=== PATIENT | female | born 1955 | race Caucasian/White ===

== ENCOUNTER → 2020-02-05 | Outpatient (CLI) | payer OTHER ==
[2016-07-13 15:25] VITALS: BP 142/81
[~2020-02-05] MED LIST: AMLO5TAB10 PO; ASPI81TA59 PO; ATOR10TA60 PO; CARV12.511 PO; CETI10TA16 PO; CHOL2000 PO; CINA30TA2 PO; FURO20TA3 PO; FURO40TA4 PO; MINO100C61 PO; POTA20TA4 PO
--- NOTE | 2020-02-05 17:15 | KCIC ---
Bilateral digital screening mammograms: Reason for examination: Routine screening. Comparison is made to previous study dated 02/23/2016. Interpretation is made with the benefit of CAD. The skin and nipples show no abnormalities. No abnormal lymph nodes are seen. The breast parenchyma is predominantly fatty. (Breast density: Category A.) There continue to be several small nodular parenchymal densities bilaterally which have improved. There are no new dominant masses, suspicious calcifications or architectural distortions. Benign-appearing calcifications are seen. Impression: No evidence of malignancy. Recommend routine screening. BI-RADS Category 2: Benign. "Our facility is accredited by the [employer] Mammography Program." This patient's information has been entered into a reminder system for the patient to be notified with the results of her examination and a target date for the next mammogram. Electronically signed by: Domitila Verdugo MD (02/05/2020 5:12 PM) [id number]
== END ==
LOC: KCIC MAMMO 12:58
PROVIDERS: ATTEND Family Medicine
DX: Z12.31 Encounter for screening mammogram for malignant neoplasm of breast (principal)
CPT/HCPCS: 77067

== ENCOUNTER → 2020-02-26 | Outpatient (CLI) | payer MEDICARE ==
[2016-07-13 15:25] VITALS: BP 142/81
== END | disposition home or self-care (01) ==
LOC: LAB 08:02
PROVIDERS: ATTEND Internal Medicine Gastroenterology
DX: Z11.59 Encounter for screening for other viral diseases (principal)
CPT/HCPCS: U0003-CS

== ENCOUNTER → 2020-02-27 | Day surgery (SDC) | payer MEDICARE ==
[~2020-02-27] MED LIST changes: +IV NORMAL SALINE 1000ML BAG 1,000 ML IV ONE; +IV RINGERS,LACTATED 1000ML 1,000 ML IV SCH; +LIDOCAINE 2% PF 5 ML VIAL. ONE; +PROPOFOL 10 MG/ML (20ML) VIAL. IV ONE
[2020-02-27 13:25] VITALS: BP 147/66
--- NOTE | 2020-02-28 18:10 | PATHOLOGY ---
[facility] Accession Number: [id number] . 01 Material submitted: . rectum - RECTAL POLYP . 02 Diagnosis: Rectal polypectomy: - Tubular adenoma. See comment. LB 02/28/2020 1547 Local . 02 Comment: Sections of the rectal polypectomy reveals a somewhat pedunculated tubular adenoma. There is no high grade dysplasia or evidence of malignancy. The base of the polyp appears to be lined by rectal mucosa showing coagulation artifact. (JPM/db; 02/28/2020) . 02 Electronically signed: . Seth Fung MD, Pathologist NPI- [id number] . 01 Gross description: . The specimen is received in formalin, labeled "Darcy Argueta, rectal polyp" and consists of a polypoid segment of pink-church tissue measuring 1.3 x 1.3 x 0.6 cm. It is serially sectioned and entirely submitted in A1. ([facility]; 02/27/2020) JFQ/JFQ 02/27/2020 1804 Local . 02 Pathologist provided ICD-10: D12.8 . 02 CPT . 597718 Specimen Comment: A courtesy copy of this report has been sent to [phone], [phone] Specimen Comment: [id number] Specimen Comment: Report sent to / DR LARSON Performed at: 01 [facility] [address], [place] [id number] MD Carlos Bah MD Phone: [phone] Performed at: 02 [facility] [address], [place] [id number] MD Seth Fung MD Phone: [phone]
== END ==
LOC: SURG 10:28
PROVIDERS: ATTEND Internal Medicine Gastroenterology
DX: K92.1 Melena (principal); K64.0 First degree hemorrhoids; D12.8 Benign neoplasm of rectum; K57.30 Diverticulosis of large intestine without perforation or abscess without bleeding; E78.00 Pure hypercholesterolemia, unspecified; I10 Essential (primary) hypertension; Z87.39 Personal history of other diseases of the musculoskeletal system and connective tissue; F15.90 Other stimulant use, unspecified, uncomplicated; Z79.82 Long term (current) use of aspirin
CPT/HCPCS: 45385; 88305; J2704; 45384

== ENCOUNTER 2020-12-12 12:44 | Inpatient (IN) | payer MEDICARE ==
[~2020-12-12] VITALS: Ht 165.1 cm; Wt 116.8 kg
[~2020-12-12 12:44] MED LIST changes: +AMLO-186 PO; -AMLO5TAB10 PO; -CINA30TA2 PO; +CINA30TA24 PO; -IV NORMAL SALINE 1000ML BAG 1,000 ML IV ONE; -IV RINGERS,LACTATED 1000ML 1,000 ML IV SCH; -LIDOCAINE 2% PF 5 ML VIAL. ONE; -PROPOFOL 10 MG/ML (20ML) VIAL. IV ONE
[2020-12-12] MEDS ORDERED: MORPHINE SULFATE 2 MG/ML VIAL. IV ONE (13:00)
[2020-12-12] MEDS ORDERED: IV NORMAL SALINE 1000ML BAG 1,000 ML IV SCH (13:00)
--- NOTE | 2020-12-12 13:11 | PHYS DOC ---
Past Medical History Smoking Status: Never Smoker Adult General Chief Complaint Chief Complaint: SYNCOPE HPI HPI Patient is a 65 year old female with a known past medical history of end-stage renal disease on dialysis now presents emergency department after a fall. Patient states that she was in the process of getting dialysis when she was went to stand up noted that her blood pressure dropped and woke up in the floor. Patient states that she then noticed significant right-sided ankle pain. Does not remember falling or hitting her head. Denies any nausea, vomiting, chest pain, headache or back pain. Review of Systems Review of Systems Constitutional: Denies fever or chills [] Eyes: Denies change in visual acuity, redness, or eye pain [] HENT: Denies nasal congestion or sore throat [] Respiratory: Denies cough or shortness of breath [] Cardiovascular: No additional information not addressed in HPI [] GI: Denies abdominal pain, nausea, vomiting, bloody stools or diarrhea [] : Denies dysuria or hematuria [] Musculoskeletal: Denies back pain or joint pain [] Integument: Denies rash or skin lesions [] Neurologic: Denies headache, focal weakness or sensory changes [] Endocrine: Denies polyuria or polydipsia [] All other systems were reviewed and found to be within normal limits, except as documented in this note. Current Medications Current Medications Current Medications Medications (Trade) Dose Ordered Sig/Indy Start Time Stop Time Status Last Admin Dose Admin Ketamine HCl (Ketamine) 100 mg 1X ONCE 12/12/20 14:45 12/12/20 14:46 DC 12/12/20 16:14 50 MG Morphine Sulfate (Morphine Sulfate) 4 mg 1X ONCE 12/12/20 14:30 12/12/20 14:31 DC 12/12/20 14:19 4 MG Ondansetron HCl (Zofran) 4 mg PRN Q8HRS PRN 12/12/20 16:30 12/13/20 14:59 DC Propofol (Diprivan) 100 mg 1X ONCE 12/12/20 14:45 12/12/20 14:46 DC 12/12/20 16:14 50 MG Sodium Chloride 1,000 ml @ 1,000 mls/hr Q1H 12/12/20 13:00 12/12/20 13:59 DC 12/12/20 13:15 1,000 MLS/HR Allergies Allergies Allergies Coded Allergies Type Severity Reaction Last Updated Verified Penicillins Allergy Intermediate Rash 02/27/20 Yes Physical Exam Physical Exam Constitutional: Well developed, well nourished, no acute distress, non-toxic appearance. [] HENT: Normocephalic, atraumatic, bilateral external ears normal, oropharynx moist, no oral exudates, nose normal. [] Eyes: PERRLA, EOMI, conjunctiva normal, no discharge. [] Neck: Normal range of motion, no tenderness, supple, no stridor. [] Cardiovascular:Heart rate regular rhythm, no murmur [] Lungs & Thorax: Bilateral breath sounds clear to auscultation [] Abdomen: Bowel sounds normal, soft, no tenderness, no masses, no pulsatile masses. [] Skin: Warm, dry, no erythema, no rash. [] Back: No tenderness, no CVA tenderness. [] Extremities: Significant deformity with prior deviation at the right ankle, no cyanosis, no clubbing, ROM intact, no edema. [] Neurologic: Alert and oriented X 3, normal motor function, normal sensory function, no focal deficits noted. [] Psychologic: Affect normal, judgement normal, mood normal. [] Current Patient Data Vital Signs Vital Signs Date Time Temp Pulse Resp B/P (MAP) Pulse Ox O2 Delivery O2 Flow Rate FiO2 12/12/20 17:22 80 156/67 (96) 12/12/20 17:06 99 Room Air 12/12/20 16:04 98.4 18 98.2 18 20 16 18 18 Lab Values Laboratory Tests Test 12/12/20 12:55 12/12/20 16:25 White Blood Count 9.7 x10^3/uL (4.0-11.0) Red Blood Count 2.95 x10^6/uL (3.50-5.40) L Hemoglobin 9.9 g/dL (12.0-15.5) L Hematocrit 29.9 % (36.0-47.0) L Mean Corpuscular Volume 101 fL (79-100) H Mean Corpuscular Hemoglobin 34 pg (25-35) Mean Corpuscular Hemoglobin Concent 33 g/dL (31-37) Red Cell Distribution Width 13.3 % (11.5-14.5) Platelet Count 248 x10^3/uL (140-400) Neutrophils (%) (Auto) 67 % (31-73) Lymphocytes (%) (Auto) 21 % (24-48) L Monocytes (%) (Auto) 10 % (0-9) H Eosinophils (%) (Auto) 2 % (0-3) Basophils (%) (Auto) 1 % (0-3) Neutrophils # (Auto) 6.4 x10^3/uL (1.8-7.7) Lymphocytes # (Auto) 2.0 x10^3/uL (1.0-4.8) Monocytes # (Auto) 0.9 x10^3/uL (0.0-1.1) Eosinophils # (Auto) 0.2 x10^3/uL (0.0-0.7) Basophils # (Auto) 0.1 x10^3/uL (0.0-0.2) Sodium Level 141 mmol/L (136-145) Potassium Level 3.5 mmol/L (3.5-5.1) Chloride Level 100 mmol/L (98-107) Carbon Dioxide Level 33 mmol/L (21-32) H Anion Gap 8 (6-14) Blood Urea Nitrogen 20 mg/dL (7-20) Creatinine 3.8 mg/dL (0.6-1.0) H Estimated GFR (Cockcroft-Gault) 12.0 BUN/Creatinine Ratio 5 (6-20) L Glucose Level 141 mg/dL (70-99) H Calcium Level 8.8 mg/dL (8.5-10.1) Magnesium Level 1.8 mg/dL (1.8-2.4) Total Bilirubin 0.3 mg/dL (0.2-1.0) Aspartate Amino Transferase (AST) 15 U/L (15-37) Alanine Aminotransferase (ALT) 33 U/L (14-59) Alkaline Phosphatase 88 U/L (46-116) Troponin I Quantitative < 0.017 ng/mL (0.000-0.055) < 0.017 ng/mL (0.000-0.055) Total Protein 7.2 g/dL (6.4-8.2) Albumin 3.6 g/dL (3.4-5.0) Albumin/Globulin Ratio 1.0 (1.0-1.7) Lipase 222 U/L (73-393) Laboratory Tests 4/24/21 12:55 Laboratory Tests 12/12/20 12:55 EKG EKG [] Radiology/Procedures Radiology/Procedures [] Course & Med Decision Making Course & Med Decision Making Pertinent Labs and Imaging studies reviewed. (See chart for details) 65-year-old female presented to emergency department after syncopal event where she suffered a clear injury to the right ankle. Will obtain work-up to evaluate for any underlying cardiac or pulmonary etiology of the patient's syncopal event, will obtain x-rays of the right ankle and anticipate need for procedural sedation for reduction Dragon Disclaimer Dragon Disclaimer This electronic medical record was generated, in whole or in part, using a voice recognition dictation system. Departure Departure Referrals: MADDI GROVES MD (PCP) Attending Signature Attending Signature I have participated in the care of this patient and I have reviewed and agree with all pertinent clinical information above including history, exam, and recommendations. ANIA BURNETT MD Dec 12, 2020 13:10
[2020-12-12 13:12] LABS: BASO # 0.1 x10^3/uL (0.0-0.2); BASO % 1 % (0-3); EOS # 0.2 x10^3/uL (0.0-0.7); EOS % 2 % (0-3); HEMATOCRIT 29.9 % (36.0-47.0); HEMOGLOBIN 9.9 g/dL (12.0-15.5); LYMPH % 21 % (24-48); MEAN CORPUSCULAR HEMOGLOBIN 34 pg (25-35); MEAN CORPUSCULAR HGB CONC 33 g/dL (31-37); MEAN CORPUSCULAR VOLUME 101 fL (79-100); MONO # 0.9 x10^3/uL (0.0-1.1); MONO % 10 % (0-9); NEUT # 6.4 x10^3/uL (1.8-7.7); NEUT % 67 % (31-73); PLATELET COUNT 248 x10^3/uL (140-400); RED BLOOD COUNT 2.95 x10^6/uL (3.50-5.40); RED CELL DISTRIBUTION WIDTH 13.3 % (11.5-14.5); WHITE BLOOD COUNT 9.7 x10^3/uL (4.0-11.0)
--- NOTE | 2020-12-12 13:15 | RAD ---
EXAM: Right ankle, 2 views. HISTORY: Fall. COMPARISON: None. FINDINGS: 2 views of the right ankle are obtained. There are displaced trimalleolar fractures with as sociated tibiotalar dislocation. There is soft tissue swelling. There is enthesopathy at the Achilles tendon insertion. There is partial visualization of a knee arthroplasty tibial component. IMPRESSION: Displaced trimalleolar fractures with associated tibiotalar dislocation. Electronically signed by: Hina Schmidt MD (12/12/2020 1:13 PM) [id number]
--- NOTE | 2020-12-12 13:16 | RAD ---
EXAM: Chest, single view. HISTORY: Fall. COMPARISON: None. FINDINGS: A frontal view of the chest is obtained. There is no infiltrate, pleural effusion or pneumo thorax. There is a stable prominent cardiac silhouette. IMPRESSION: No acute pulmonary finding. Electronically signed by: Hina Schmidt MD (12/12/2020 1:13 PM) [id number]
--- NOTE | 2020-12-12 13:19 | EKG ---
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
[2020-12-12 13:22] LABS: CALCIUM 8.8 mg/dL (8.5-10.1); CREATININE 3.8 mg/dL (0.6-1.0); POTASSIUM 3.5 mmol/L (3.5-5.1)
[2020-12-12 13:28] LABS: ALBUMIN 3.6 g/dL (3.4-5.0); MAGNESIUM 1.8 mg/dL (1.8-2.4); TOTAL BILIRUBIN 0.3 mg/dL (0.2-1.0); TOTAL PROTEIN 7.2 g/dL (6.4-8.2)
[2020-12-12] MEDS ORDERED: MORPHINE SULFATE 4 MG/ML VIAL. IV ONE (14:30)
[2020-12-12] MEDS ORDERED: KETAMINE HCL IN NACL, ISO-OSM 50 MG/5 ML SYRINGE IV ONE (14:45)
[2020-12-12] MEDS ORDERED: PROPOFOL 10 MG/ML (20ML) VIAL. IV ONE (14:45)
--- NOTE | 2020-12-12 14:57 | EKG ---
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
[2020-12-12 16:04] VITALS: BP 155/71
[2020-12-12] MEDS ORDERED: ONDANSETRON PF 4 MG/2 ML VIAL. IV PRN (16:30)
--- NOTE | 2020-12-12 17:22 | HP ---
ADMIT DATE: 12/12/2020 CHIEF COMPLAINT: Syncope with right leg pain after falling. HISTORY OF PRESENT ILLNESS: The patient is a pleasant 65-year-old female who often gets weak and dizzy after dialysis. Today, she went to dialysis. She was doing relatively well. 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 She was bringing the food out from the grocery store to her 's car and then had a syncopal episode. She twisted her ankle and was brought to the ER here complaining of pain. We did some imaging. She does have a trimalleolar fracture. She rates her pain at 10/10. It is worse with moving, better sitting still. We are going to admit the patient and consult Orthopedics. PAST MEDICAL HISTORY: End-stage renal disease, on dialysis; diabetes, hypertension, overweight, hyperlipidemia, edema. ALLERGIES: PENICILLIN. FAMILY HISTORY: Diabetes. SOCIAL HISTORY: She does not drink, smoke or take drugs. HOME MEDICATIONS: Reviewed. Please refer to the MRAD. REVIEW OF SYSTEMS: GENERAL: No history of weight change, weakness or fevers. SKIN: No bruising, hair changes or rashes. EYES: No blurred, double or loss of vision. NOSE AND THROAT: No history of nosebleeds, hoarseness or sore throat. HEART: No history of palpitations, chest pain or shortness of breath on exertion. LUNGS: Denies cough, hemoptysis, wheezing or shortness of breath. GASTROINTESTINAL: Denies changes in appetite, nausea, vomiting, diarrhea or constipation. GENITOURINARY: No history of frequency, urgency, hesitancy or nocturia. NEUROLOGIC: Denies history of numbness, tingling, tremor or weakness. PSYCHIATRIC: No history of panic, anxiety or depression. ENDOCRINE: No history of heat or cold intolerance, polyuria or polydipsia. EXTREMITIES: She complains of right ankle pain. PHYSICAL EXAMINATION: VITALS: Within normal limits and are stable. GENERAL: No apparent distress. Alert and oriented. HEENT: Normal cephalic atraumatic, external auditory canals are patent EYES: Extraocular muscles are intact, pupils are equally round and reactive to light and accommodation MUSCULOSKELETAL: Well developed, well nourished, good range of motion ENDOCRINE: No thyromegaly was palpated LYMPHATICS: No cervical chain or axillary nodes were noted HEMATOPOIETIC: No bruising NECK: Supple, no JVD, no thyromegaly was noted. LUNGS: Clear to auscultation in all lung becker without rhonchi or wheezing. HEART: RRR, S1, S2 present. Peripheral pulses intact, no obvious murmurs were noted. ABDOMEN: Soft, nontender. Positive bowel sounds no organomegaly, normal bowel sounds. EXTREMITIES: The right ankle is in a brace and is obviously fractured. NEUROLOGIC: Normal speech, normal tone. A and O x 3, moves all extremities, no obvious focal deficits. PSYCHIATRIC: Normal affect, normal mood. Stable. SKIN: No ulcerations or rashes, good skin turgor, no jaundice. VASCULAR: Good capillary refill, neurovascular bundle appears to be intact. IMAGING: X-rays are showing a trimalleolar fracture. LABORATORY DATA: White count 9, hemoglobin 9.9, platelets 248. Electrolytes are normal other than a creatinine of 3.8, but her BUN is 20 and her CO2 is a little high at 33. Troponin is 0. ASSESSMENT AND PLAN: Syncope with fall with traumatic right trimalleolar fracture. The patient will be admitted. We will consult orthopedics. Consult nephrology for dialysis. Home medications. Deep venous thrombosis prophylaxis. Full code. Will probably have to rule out for COVID-19 before she goes to surgery. IV normal saline. P.r.n. morphine. NORMA/RANDY DR: NORMA/luis TID: [id number]
--- NOTE | 2020-12-12 18:29 | RAD ---
EXAM: CT right foot and ankle without contrast. HISTORY: Fracture dislocation. TECHNIQUE: CT of the right ankle was performed without intravenous contrast. One or more of the [facility] individualized dose reduction techniques were utilized for this examination: 1. Automated exposure control. 2. Adjustment of the mA and/or kV according to patient size. 3. Use of iterative reconstruction technique. COMPARISON: Today's radiographs. FINDINGS: The stem of a right knee arthroplasty is noted within the tibial diaphysis at the superior margin of the [id number]. A fracture of the medial malleolus remains laterally displaced by 4 mm. There are small comminuted fr actures along the fracture margin. There is an oblique fracture of the distal fibular metaphysis intersecting the mortise just proximal to the tibial plafond. There is one shaft width lateral displacement and mild lateral angulation of t he distal fracture fragment. There is a comminuted fracture of the posterior malleolus. The fracture fragment is displaced posteri mary jo and laterally by 5 mm, resulting in a 5 mm articular surface gap. Small fracture fragments are i nterposed in the fracture gap. Mortise alignment is improved, but there is still lateral subluxation and mild lateral tilt of the ta blanca. No talar dome fracture is seen. A small subchondral cyst within the medial corner of the talar d ome measures 2 mm and is likely associated with an overlying chronic cartilage defect. Small avulsion fracture fragments are noted along the lateral aspect of the talar sustentaculum. There is a highly comminuted fracture of the cuboid. This intersects the fourth and fifth tarsometata rsal joints. Calcaneocuboid alignment is maintained. An avulsion fracture fragment is noted between t he lateral talus and lateral calcaneus. Midfoot alignment appears maintained. Soft tissue swelling is noted about the ankle. The medial and lateral tendons are not included in a f racture gap. There are moderate to large posterior and small plantar calcaneal spurs. 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 IMPRESSION: 1. Partial reduction of the tibiotalar dislocation. There is residual lateral subluxation and tilt of the talus. 2. Comminuted fractures of the medial, lateral and posterior malleolar line is above. 5 mm articular surface gap associated with the posterior malleolar fragment. Fracture fragments are interposed in th is fracture gap. 3. Highly comminuted fracture of the cuboid involving the fourth and fifth tarsometatarsal joints. A follow-up. Avulsion fractures associated with the lateral calcaneus and the talar sustentaculum. Electronically signed by: Zayda Cee MD (12/12/2020 6:26 PM) [facility]
[2020-12-12 21:00] VITALS: BP 140/65
[2020-12-12] MEDS: MORPHINE SULFATE 4 MG/ML VIAL. IVP PRN (21:58)
--- NOTE | 2020-12-12 22:00 | NUR ---
ADMIT NOTE: RECEIVED PT FROM ED VIA LON PT ALERT ORIENTED X4 /CO PAIN IN RIGHT LOWER LEG, CAST IN PLACE , TOE COOLS TO TOUCH BUT SAME ON UNAFFECTED LEG GOOD CAPILLARY REFILL. DATA BASE COMPLETED AND ASSESSMENT COMPLETED, DISCUSSED PLAN OF CARE, VERBALIZED UNDERSTANDING.
[2020-12-12] MEDS ORDERED: SEVE800T9 PO (22:30)
[2020-12-12] MEDS ORDERED: CALC667T4 PO (22:30)
[2020-12-12] MEDS ORDERED: FOLI0.8T21 PO (22:30)
[2020-12-12 23:15] VITALS: BP 135/54
[2020-12-13 03:15] VITALS: BP 161/81
[2020-12-13] MEDS: MORPHINE SULFATE 4 MG/ML VIAL. IVP PRN ×2 (03:28→14:47)
[2020-12-13] MEDS ORDERED: ceFAZolin SODIUM IV Push 1 GM VIAL. IVP ONE ×3 (05:59→08:00)
[2020-12-13] MEDS ORDERED: INSULIN LISPRO 100 UNIT/ML 3ML VIAL for OP,RR ONLY. SQ PRN (06:00)
[2020-12-13] MEDS ORDERED: MORPHINE SULFATE 2 MG/ML VIAL. IVP PRN ×2 (06:00→09:15)
[2020-12-13] MEDS ORDERED: IV RINGERS,LACTATED 1000ML 1,000 ML IV SCH (06:00)
[2020-12-13] MEDS ORDERED: HYDROmorphone 2 MG/ML VIAL IVP PRN (06:00)
[2020-12-13] MEDS ORDERED: PROCHLORPERAZINE 10 MG/2 ML VIAL. IVP PRN (06:00)
[2020-12-13] MEDS ORDERED: fentaNYL PF VIAL 100 MCG/2 ML VIAL IVP PRN (06:00)
[2020-12-13] MEDS ORDERED: LIDOCAINE 2% PF 5 ML VIAL. ONE (07:23)
[2020-12-13] MEDS ORDERED: SUCCINYLCHOLINE 200 MG/10 ML VIAL. ONE (07:23)
[2020-12-13] MEDS ORDERED: ONDANSETRON PF 4 MG/2 ML VIAL. ONE (07:23)
[2020-12-13] MEDS ORDERED: PROPOFOL 10 MG/ML (20ML) VIAL. IV ONE (07:23)
[2020-12-13] MEDS ORDERED: DEXAMETHASONE SOD PHOS 4 MG/ML VIAL ONE ×3 (07:23→09:27)
[2020-12-13] MEDS ORDERED: fentaNYL PF VIAL 100 MCG/2 ML VIAL ONE ×2 (07:24→10:31)
--- NOTE | 2020-12-13 08:00 | PDOC2 ---
CONSULT Date of Consult Date of Consult DATE: 12/13/20 TIME: 07:56 Reason for Consult Reason for Consult: Right ankle fracture Identification/Chief Complaint Chief Complaint Right ankle pain History of Present Illness Reason for Visit: 65-year-old female who sustained ground level fall after dialysis while grocery shopping. She twisted her ankle and was brought to the ER here complaining of pain. She was diagnosed with a trimalleolar fracture. She rates her pain at 10/10. It is worse with moving, better sitting still. She denies history of previous trauma or injury to the ankle. Past Medical History Cardiovascular: No pertinent hx, HTN, Hyperlipidemia Pulmonary: No pertinent hx, Other Past Surgical History Past Surgical History Right revision TKA Family History Family History: Diabetes, Heart Disease, High Cholestrol, Kidney Disease, Stroke Current Problem List Problem List Problems Medical Problems: (1) Syncope Status: Acute Current Medications Current Medications Current Medications Morphine Sulfate (Morphine Sulfate) 2 mg 1X ONCE IV Last administered on 12/12/20at 13:16; Start 12/12/20 at 13:00; Stop 12/12/20 at 13:01; Status DC Sodium Chloride 1,000 ml @ 1,000 mls/hr Q1H IV Last administered on 12/12/20at 13:15; Start 12/12/20 at 13:00; Stop 12/12/20 at 13:59; Status DC Morphine Sulfate (Morphine Sulfate) 4 mg 1X ONCE IV Last administered on 12/12/20at 14:19; Start 12/12/20 at 14:30; Stop 12/12/20 at 14:31; Status DC Propofol (Diprivan) 100 mg 1X ONCE IV Last administered on 12/12/20at 16:14; Start 12/12/20 at 14:45; Stop 12/12/20 at 14:46; Status DC Ketamine HCl (Ketamine) 100 mg 1X ONCE IV Last administered on 12/12/20at 16:14; Start 12/12/20 at 14:45; Stop 12/12/20 at 14:46; Status DC Ondansetron HCl (Zofran) 4 mg PRN Q8HRS PRN IV NAUSEA/VOMITING; Start 12/12/20 at 16:30; Stop 12/13/20 at 16:29 Fentanyl Citrate (Fentanyl 2ml Vial) 25 mcg PRN Q5MIN PRN IVP MILD PAIN 1-3; Start 12/13/20 at 06:00; Stop 12/13/20 at 18:00 Fentanyl Citrate (Fentanyl 2ml Vial) 50 mcg PRN Q5MIN PRN IVP MODERATE PAIN 4- 6; Start 12/13/20 at 06:00; Stop 12/13/20 at 18:00 Morphine Sulfate (Morphine Sulfate) 1 mg PRN Q10MIN PRN IVP SEVERE PAIN 7-10; Start 12/13/20 at 06:00; Stop 12/13/20 at 18:00 Ringer's Solution 1,000 ml @ 30 mls/hr Q24H IV ; Start 12/13/20 at 06:00; Stop 12/13/20 at 17:59 Hydromorphone HCl (Dilaudid) 0.5 mg PRN Q10MIN PRN IVP SEVERE PAIN 7-10, 2nd CHOICE; Start 12/13/20 at 06:00; Stop 12/13/20 at 18:00 Prochlorperazine Edisylate (Compazine) 5 mg PACU PRN PRN IVP NAUSEA, MRX1; Start 12/13/20 at 06:00; Stop 12/13/20 at 18:00 Insulin Human Lispro (HumaLOG VIAL for OP,RR ONLY) 0-10 units PRN Q1HR PRN SQ PER PROTOCOL; Start 12/13/20 at 06:00; Stop 12/13/20 at 15:00 Morphine Sulfate (Morphine Sulfate) 4 mg PRN Q2HR PRN IVP SEVERE PAIN 7-10 Last administered on 12/13/20at 03:28; Start 12/12/20 at 21:30 Succinylcholine Chloride (Anectine) 200 mg STK-MED ONCE .ROUTE ; Start 12/13/20 at 07:23; Stop 12/13/20 at 07:23; Status DC Dexamethasone Sodium Phosphate (Decadron) 4 mg STK-MED ONCE .ROUTE ; Start 12/13/20 at 07:23; Stop 12/13/20 at 07:23; Status DC Ondansetron HCl (Zofran) 4 mg STK-MED ONCE .ROUTE ; Start 12/13/20 at 07:23; Stop 12/13/20 at 07:23; Status DC Propofol (Diprivan) 200 mg STK-MED ONCE IV ; Start 12/13/20 at 07:23; Stop 12/13/20 at 07:24; Status DC Lidocaine HCl (Lidocaine Pf 2% Vial) 5 ml STK-MED ONCE .ROUTE ; Start 12/13/20 at 07:23; Stop 12/13/20 at 07:24; Status DC Fentanyl Citrate (Fentanyl 2ml Vial) 100 mcg STK-MED ONCE .ROUTE ; Start 1 at 07:24; Stop 12/13/20 at 07:24; Status DC Active Scripts Active Furosemide 40 Mg Tablet 40 Mg PO DAILY 30 Days Reported Calcium Acetate 667 Mg Tablet 1 Tab PO TID 30 Days Renvela (Sevelamer Carbonate) 800 Mg Tablet 1 Tab PO TID 30 Days Lynsey-Sai Tablet (Folic Acid/Vitamin B Comp W-C) 0.8 Mg Tablet 1 Tab PO DAILY 30 Days Children's Aspirin (Aspirin) 81 Mg Tab.chew 81 Mg PO DAILY Sensipar (Cinacalcet Hcl) 30 Mg Tablet 30 Mg PO DAILY Atorvastatin Calcium 10 Mg Tablet 10 Mg PO HS Vitamin D (Cholecalciferol (Vitamin D3)) 2,000 Unit Capsule 2,000 Unit PO DAILY Allergies Allergies: Coded Allergies: Penicillins (Verified Allergy, Intermediate, Rash, 02/27/20) ROS Review of System Negative except as above Physical Exam Physical Exam LLE: Skin intact. Distal NV exam intact. 2+ DP pulse. SILT about the toes. Moves toes to command. RLE: TTP about right ankle. Gross deformity. Skin intact. Distal NV exam intact. 2+ DP pulse. SILT about the toes. Moves toes to command. General: Alert, Oriented X3, Cooperative Vitals VITALS Vital Signs Date Time Temp Pulse Resp B/P (MAP) Pulse Ox O2 Delivery O2 Flow Rate FiO2 12/13/20 03:45 98 12/13/20 03:15 98.2 103 20 161/81 (107) BiPAP/CPAP 98.2 Labs Labs Laboratory Tests Test 12/12/20 12:55 12/12/20 16:25 12/12/20 19:44 12/12/20 20:17 White Blood Count 9.7 x10^3/uL (4.0-11.0) Red Blood Count 2.95 x10^6/uL (3.50-5.40) Hemoglobin 9.9 g/dL (12.0-15.5) Hematocrit 29.9 % (36.0-47.0) Mean Corpuscular Volume 101 fL (79-100) Mean Corpuscular Hemoglobin 34 pg (25-35) Mean Corpuscular Hemoglobin Concent 33 g/dL (31-37) Red Cell Distribution Width 13.3 % (11.5-14.5) Platelet Count 248 x10^3/uL (140-400) Neutrophils (%) (Auto) 67 % (31-73) Lymphocytes (%) (Auto) 21 % (24-48) Monocytes (%) (Auto) 10 % (0-9) Eosinophils (%) (Auto) 2 % (0-3) Basophils (%) (Auto) 1 % (0-3) Neutrophils # (Auto) 6.4 x10^3/uL (1.8-7.7) Lymphocytes # (Auto) 2.0 x10^3/uL (1.0-4.8) Monocytes # (Auto) 0.9 x10^3/uL (0.0-1.1) Eosinophils # (Auto) 0.2 x10^3/uL (0.0-0.7) Basophils # (Auto) 0.1 x10^3/uL (0.0-0.2) Sodium Level 141 mmol/L (136-145) Potassium Level 3.5 mmol/L (3.5-5.1) Chloride Level 100 mmol/L (98-107) Carbon Dioxide Level 33 mmol/L (21-32) Anion Gap 8 (6-14) Blood Urea Nitrogen 20 mg/dL (7-20) Creatinine 3.8 mg/dL (0.6-1.0) Estimated GFR (Cockcroft-Gault) 12.0 BUN/Creatinine Ratio 5 (6-20) Glucose Level 141 mg/dL (70-99) Calcium Level 8.8 mg/dL (8.5-10.1) Magnesium Level 1.8 mg/dL (1.8-2.4) Total Bilirubin 0.3 mg/dL (0.2-1.0) Aspartate Amino Transf (AST/SGOT) 15 U/L (15-37) Alanine Aminotransferase (ALT/SGPT) 33 U/L (14-59) Alkaline Phosphatase 88 U/L (46-116) Troponin I Quantitative < 0.017 ng/mL (0.000-0.055) < 0.017 ng/mL (0.000-0.055) < 0.017 ng/mL (0.000-0.055) Total Protein 7.2 g/dL (6.4-8.2) Albumin 3.6 g/dL (3.4-5.0) Albumin/Globulin Ratio 1.0 (1.0-1.7) Lipase 222 U/L (73-393) Glucose (Fingerstick) 90 mg/dL (70-99) Test 12/12/20 21:15 SARS-CoV-2 Antigen (Rapid) Negative (NEGATIVE) Laboratory Tests Test 12/12/20 12:55 12/12/20 16:25 12/12/20 19:44 12/12/20 20:17 White Blood Count 9.7 x10^3/uL (4.0-11.0) Red Blood Count 2.95 x10^6/uL (3.50-5.40) Hemoglobin 9.9 g/dL (12.0-15.5) Hematocrit 29.9 % (36.0-47.0) Mean Corpuscular Volume 101 fL (79-100) Mean Corpuscular Hemoglobin 34 pg (25-35) Mean Corpuscular Hemoglobin Concent 33 g/dL (31-37) Red Cell Distribution Width 13.3 % (11.5-14.5) Platelet Count 248 x10^3/uL (140-400) Neutrophils (%) (Auto) 67 % (31-73) Lymphocytes (%) (Auto) 21 % (24-48) Monocytes (%) (Auto) 10 % (0-9) Eosinophils (%) (Auto) 2 % (0-3) Basophils (%) (Auto) 1 % (0-3) Neutrophils # (Auto) 6.4 x10^3/uL (1.8-7.7) Lymphocytes # (Auto) 2.0 x10^3/uL (1.0-4.8) Monocytes # (Auto) 0.9 x10^3/uL (0.0-1.1) Eosinophils # (Auto) 0.2 x10^3/uL (0.0-0.7) Basophils # (Auto) 0.1 x10^3/uL (0.0-0.2) Sodium Level 141 mmol/L (136-145) Potassium Level 3.5 mmol/L (3.5-5.1) Chloride Level 100 mmol/L (98-107) Carbon Dioxide Level 33 mmol/L (21-32) Anion Gap 8 (6-14) Blood Urea Nitrogen 20 mg/dL (7-20) Creatinine 3.8 mg/dL (0.6-1.0) Estimated GFR (Cockcroft-Gault) 12.0 BUN/Creatinine Ratio 5 (6-20) Glucose Level 141 mg/dL (70-99) Calcium Level 8.8 mg/dL (8.5-10.1) Magnesium Level 1.8 mg/dL (1.8-2.4) Total Bilirubin 0.3 mg/dL (0.2-1.0) Aspartate Amino Transf (AST/SGOT) 15 U/L (15-37) Alanine Aminotransferase (ALT/SGPT) 33 U/L (14-59) Alkaline Phosphatase 88 U/L (46-116) Troponin I Quantitative < 0.017 ng/mL (0.000-0.055) < 0.017 ng/mL (0.000-0.055) < 0.017 ng/mL (0.000-0.055) Total Protein 7.2 g/dL (6.4-8.2) Albumin 3.6 g/dL (3.4-5.0) Albumin/Globulin Ratio 1.0 (1.0-1.7) Lipase 222 U/L (73-393) Glucose (Fingerstick) 90 mg/dL (70-99) Test 12/12/20 21:15 SARS-CoV-2 Antigen (Rapid) Negative (NEGATIVE) Images Images Right trimalleolar ankle fracture Assessment/Plan Assessment/Plan 65 y/o F with R trimalleolar ankle fracture -NPO now -Consent for ORIF R ankle -Risks and benefits discussed, informed consent obtained -Plan surgery today BETZAIDA CALLOWAY MD Dec 13, 2020 08:00
--- NOTE | 2020-12-13 09:09 | PDOC4 ---
OPERATIVE NOTE Date: Date: Dec 13, 2020 Pre-Op Diagnosis: Right trimalleolar ankle fracture Post-Op Diagnosis: Right trimalleolar ankle fracture Procedure Performed: ORIF right trimalleolar ankle fracture Surgeon: Precious Anesthesia Type: General Blood Loss: 25 Specimans Obtained: None Findings: Consistent with dx Complications: None Operative Note: See BETZAIDA Kat MD Dec 13, 2020 09:09
[2020-12-13] MEDS ORDERED: BUPIVACAINE MPF 0.25% 30 ML VIAL. ONE (09:14)
[2020-12-13] MEDS ORDERED: MORPHINE SULFATE 4 MG/ML VIAL. IVP PRN (09:15)
[2020-12-13] MEDS ORDERED: ONDANSETRON PF 4 MG/2 ML VIAL. IVP PRN (09:15)
[2020-12-13] MEDS ORDERED: DEXTROSE 50% 25 GM / 50ML DISP.SYRIN. IV PRN (09:15)
[2020-12-13] MEDS ORDERED: HYDROcodone/APAP 7.5/325MG 1 TAB TABLET PO PRN ×2 (09:15)
[2020-12-13] MEDS ORDERED: SEVOFLURANE 61 TO 120 MINUTES. IH ONE (09:20)
[2020-12-13] MEDS ORDERED: BUPIVACAINE MPF 0.5% 30 ML VIAL. ONE (09:27)
[2020-12-13] MEDS: fentaNYL PF VIAL 100 MCG/2 ML VIAL IVP PRN ×2 (10:35→11:02)
--- NOTE | 2020-12-13 11:30 | NUR ---
Patient has returned to room per bed, at bedside. Right leg up on pillows. Dressing right foot/ankle dry and intact wihout any signs of bleeding/shadowing. Ice pack to right ankle. IVF saline locked. Pt drowsy, has placed CPAP. O2 sat 93-94% on room air at this time. VSS, set up for post op vs.
--- NOTE | 2020-12-13 11:55 | PDOC2 ---
CONSULT Date of Consult Date of Consult DATE: 12/13/20 TIME: 11:50 Reason for Consult Reason for Consult: ESRD Referring Physician Referring Physician: FABY Identification/Chief Complaint Chief Complaint FALL Source Source: Chart review, Patient History of Present Illness Reason for Visit: THIS IS A 65 YR OLD WITH ESRD. ON OP HD ON TTS. USES L FA RC AVF FOR HER HD. FELT DIZZY YESTERDAY AND FELL. HAS SUSTAINED A RIGHT ANKLE FRACTURE. LABS ARE C/W ESRD. ESRD DUE TO DM II. PT BEING EVALUATED BY ORTHOPEDIC SURGERY. Past Medical History Cardiovascular: No pertinent hx, HTN, Hyperlipidemia Pulmonary: No pertinent hx, Other Endocrine: Diabetes, Hyperparathyroidism Past Surgical History Past Surgical History LEFT FA RC AVF. Family History Family History: Diabetes, Heart Disease, High Cholestrol, Kidney Disease, Stroke Social History No ALCOHOL: none Drugs: None Lives: with Family Current Problem List Problem List Problems Medical Problems: (1) Syncope Status: Acute Current Medications Current Medications Current Medications Morphine Sulfate (Morphine Sulfate) 2 mg 1X ONCE IV Last administered on 12/12/20at 13:16; Start 12/12/20 at 13:00; Stop 12/12/20 at 13:01; Status DC Sodium Chloride 1,000 ml @ 1,000 mls/hr Q1H IV Last administered on 12/12/20at 13:15; Start 12/12/20 at 13:00; Stop 12/12/20 at 13:59; Status DC Morphine Sulfate (Morphine Sulfate) 4 mg 1X ONCE IV Last administered on 12/12/20at 14:19; Start 12/12/20 at 14:30; Stop 12/12/20 at 14:31; Status DC Propofol (Diprivan) 100 mg 1X ONCE IV Last administered on 12/12/20at 16:14; Start 12/12/20 at 14:45; Stop 12/12/20 at 14:46; Status DC Ketamine HCl (Ketamine) 100 mg 1X ONCE IV Last administered on 12/12/20at 16:1 4; Start 12/12/20 at 14:45; Stop 12/12/20 at 14:46; Status DC Ondansetron HCl (Zofran) 4 mg PRN Q8HRS PRN IV NAUSEA/VOMITING; Start 12/12/20 at 16:30; Stop 12/13/20 at 16:29 Fentanyl Citrate (Fentanyl 2ml Vial) 25 mcg PRN Q5MIN PRN IVP MILD PAIN 1-3; S tart 12/13/20 at 06:00; Stop 12/13/20 at 18:00 Fentanyl Citrate (Fentanyl 2ml Vial) 50 mcg PRN Q5MIN PRN IVP MODERATE PAIN 4-6 Last administered on 12/13/20at 11:02; Start 12/13/20 at 06:00; Stop 12/13/20 at 18:00 Morphine Sulfate (Morphine Sulfate) 1 mg PRN Q10MIN PRN IVP SEVERE PAIN 7-10; Start 12/13/20 at 06:00; Stop 12/13/20 at 18:00 Ringer's Solution 1,000 ml @ 30 mls/hr Q24H IV ; Start 12/13/20 at 06:00; Stop 12/13/20 at 17:59 Hydromorphone HCl (Dilaudid) 0.5 mg PRN Q10MIN PRN IVP SEVERE PAIN 7-10, 2nd CHOICE; Start 12/13/20 at 06:00; Stop 12/13/20 at 18:00 Prochlorperazine Edisylate (Compazine) 5 mg PACU PRN PRN IVP NAUSEA, MRX1; Start 12/13/20 at 06:00; Stop 12/13/20 at 18:00 Insulin Human Lispro (HumaLOG VIAL for OP,RR ONLY) 0-10 units PRN Q1HR PRN SQ PER PROTOCOL; Start 12/13/20 at 06:00; Stop 12/13/20 at 15:00 Morphine Sulfate (Morphine Sulfate) 4 mg PRN Q2HR PRN IVP SEVERE PAIN 7-10 Last administered on 12/13/20at 03:28; Start 12/12/20 at 21:30 Succinylcholine Chloride (Anectine) 200 mg STK-MED ONCE .ROUTE ; Start 12/13/20 at 07:23; Stop 12/13/20 at 07:23; Status DC Dexamethasone Sodium Phosphate (Decadron) 4 mg STK-MED ONCE .ROUTE ; Start 12/13/20 at 07:23; Stop 12/13/20 at 07:23; Status DC Ondansetron HCl (Zofran) 4 mg STK-MED ONCE .ROUTE ; Start 12/13/20 at 07:23; Stop 12/13/20 at 07:23; Status DC Propofol (Diprivan) 200 mg STK-MED ONCE IV ; Start 12/13/20 at 07:23; Stop 12/13/20 at 07:24; Status DC Lidocaine HCl (Lidocaine Pf 2% Vial) 5 ml STK-MED ONCE .ROUTE ; Start 12/13/20 at 07:23; Stop 12/13/20 at 07:24; Status DC Fentanyl Citrate (Fentanyl 2ml Vial) 100 mcg STK-MED ONCE .ROUTE ; Start 12/13/20 at 07:24; Stop 12/13/20 at 07:24; Status DC Cefazolin Sodium (Ancef) 1 gm STK-MED ONCE IVP ; Start 12/13/20 at 07:59; Stop 12/13/20 at 07:59; Status DC Cefazolin Sodium (Ancef) 1 gm STK-MED ONCE IVP ; Start 12/13/20 at 05:59; Stop 12/13/20 at 08:00; Status DC Cefazolin Sodium (Ancef) 1 gm STK-MED ONCE IVP ; Start 12/13/20 at 08:00; Stop 12/13/20 at 08:00; Status DC Oxycodone HCl (Roxicodone) 5 mg PRN Q3HRS PRN PO MODERATE PAIN 4-6; Start 12/13/20 at 09:15 Morphine Sulfate (Morphine Sulfate) 2 mg PRN Q1HR PRN IVP SEVERE PAIN 7-10; Start 12/13/20 at 09:15 Ondansetron HCl (Zofran) 4 mg PRN Q4HRS PRN IVP NAUSEA/VOMITING; Start 12/13/20 at 09:15 Aspirin ([place] Aspirin) 325 mg DAILYWBKFT PO ; Start 12/14/20 at 08:00 Acetaminophen/ Hydrocodone Bitart (Lortab 7.5/325) 1 tab PRN Q4HRS PRN PO PAIN; Start 12/13/20 at 09:15 Morphine Sulfate (Morphine Sulfate) 4 mg PRN Q2HR PRN IVP SEVERE PAIN 7-10; Start 12/13/20 at 09:15 Acetaminophen/ Hydrocodone Bitart (Lortab 7.5/325) 2 tab PRN Q4HRS PRN PO PAIN; Start 12/13/20 at 09:15 Dextrose (Dextrose 50%-Water Syringe) 12.5 gm PRN Q15MIN PRN IV SEE COMMENTS; Start 12/13/20 at 09:15 Cefazolin Sodium/ Dextrose 50 ml @ 100 mls/hr Q6H IV ; Start 12/13/20 at 09:30; Stop 12/13/20 at 11:38; Status DC Dexamethasone Sodium Phosphate (Decadron) 4 mg STK-MED ONCE .ROUTE ; Start 12/13/20 at 09:14; Stop 12/13/20 at 09:14; Status DC Bupivacaine HCl (Sensorcaine Mpf 0.25%) 30 ml STK-MED ONCE .ROUTE ; Start 12/13/20 at 09:14; Stop 12/13/20 at 09:14; Status DC Sevoflurane (Ultane) 60 ml STK-MED ONCE IH ; Start 12/13/20 at 09:20; Stop 12/13/20 at 09:20; Status DC Dexamethasone Sodium Phosphate (Decadron) 4 mg STK-MED ONCE .ROUTE ; Start 12/13/20 at 09:27; Stop 12/13/20 at 09:27; Status DC Bupivacaine HCl (Sensorcaine Mpf 0.5%) 30 ml STK-MED ONCE .ROUTE ; Start 12/13/20 at 09:27; Stop 12/13/20 at 09:28; Status DC Fentanyl Citrate (Fentanyl 2ml Vial) 100 mcg STK-MED ONCE .ROUTE ; Start 12/13/20 at 10:31; Stop 12/13/20 at 10:31; Status DC Cefazolin Sodium/ Dextrose 50 ml @ 100 mls/hr 1X PREOP PRN IV PRIOR TO PROCEDURE Last administered on 12/13/20at 08:05; Start 12/13/20 at 06:00; Stop 12/14/20 at 18:00 Cefazolin Sodium/ Dextrose 50 ml @ 100 mls/hr Q6H IV ; Start 12/13/20 at 19:00; Stop 12/14/20 at 07:29 Active Scripts Active Furosemide 40 Mg Tablet 40 Mg PO DAILY 30 Days Reported Calcium Acetate 667 Mg Tablet 1 Tab PO TID 30 Days Renvela (Sevelamer Carbonate) 800 Mg Tablet 1 Tab PO TID 30 Days Lynsey-Sai Tablet (Folic Acid/Vitamin B Comp W-C) 0.8 Mg Tablet 1 Tab PO DAILY 30 Days Children's Aspirin (Aspirin) 81 Mg Tab.chew 81 Mg PO DAILY Sensipar (Cinacalcet Hcl) 30 Mg Tablet 30 Mg PO DAILY Atorvastatin Calcium 10 Mg Tablet 10 Mg PO HS Vitamin D (Cholecalciferol (Vitamin D3)) 2,000 Unit Capsule 2,000 Unit PO DAILY Allergies Allergies: Coded Allergies: Penicillins (Verified Allergy, Intermediate, Rash, 02/27/20) ROS General: YES: Fatigue PSYCHOLOGICAL ROS: YES: Depression Eyes: Yes Decreased vision ALLERGY AND IMMUNOLOGY: YES: Seasonal Allergies Respiratory: YES: Cough Gastrointestinal: Yes Constipation Genitourinary: YES Other (ANURIA) Musculoskeletal: Yes Joint Pain, Yes Joint Swelling Neurological: Yes Weakness Skin: Yes Dry Skin Physical Exam General: Alert, Oriented X3, Cooperative, No acute distress HEENT: Atraumatic Lungs: Clear to auscultation Heart: Regular rate Abdomen: Normal bowel sounds, Soft, No tenderness Extremities: No cyanosis Skin: No breakdown Neuro: Normal speech, Cranial nerves 3-12 NL Psych/Mental Status: Mental status NL, Mood NL MUSCULOSKELETAL: Other (RIGHT ANKLE EDEMA AND TENDERNESS TO PALPATION) Vitals VITALS Vital Signs Date Time Temp Pulse Resp B/P (MAP) Pulse Ox O2 Delivery O2 Flow Rate FiO2 12/13/20 11:05 99.6 86 19 160/81 99 Nasal Cannula 2.0 99.6 Labs Labs Laboratory Tests Test 12/12/20 12:55 12/12/20 16:25 12/12/20 19:44 12/12/20 20:17 White Blood Count 9.7 x10^3/uL (4.0-11.0) Red Blood Count 2.95 x10^6/uL (3.50-5.40) Hemoglobin 9.9 g/dL (12.0-15.5) Hematocrit 29.9 % (36.0-47.0) Mean Corpuscular Volume 101 fL (79-100) Mean Corpuscular Hemoglobin 34 pg (25-35) Mean Corpuscular Hemoglobin Concent 33 g/dL (31-37) Red Cell Distribution Width 13.3 % (11.5-14.5) Platelet Count 248 x10^3/uL (140-400) Neutrophils (%) (Auto) 67 % (31-73) Lymphocytes (%) (Auto) 21 % (24-48) Monocytes (%) (Auto) 10 % (0-9) Eosinophils (%) (Auto) 2 % (0-3) Basophils (%) (Auto) 1 % (0-3) Neutrophils # (Auto) 6.4 x10^3/uL (1.8-7.7) Lymphocytes # (Auto) 2.0 x10^3/uL (1.0-4.8) Monocytes # (Auto) 0.9 x10^3/uL (0.0-1.1) Eosinophils # (Auto) 0.2 x10^3/uL (0.0-0.7) Basophils # (Auto) 0.1 x10^3/uL (0.0-0.2) Sodium Level 141 mmol/L (136-145) Potassium Level 3.5 mmol/L (3.5-5.1) Chloride Level 100 mmol/L (98-107) Carbon Dioxide Level 33 mmol/L (21-32) Anion Gap 8 (6-14) Blood Urea Nitrogen 20 mg/dL (7-20) Creatinine 3.8 mg/dL (0.6-1.0) Estimated GFR (Cockcroft-Gault) 12.0 BUN/Creatinine Ratio 5 (6-20) Glucose Level 141 mg/dL (70-99) Calcium Level 8.8 mg/dL (8.5-10.1) Magnesium Level 1.8 mg/dL (1.8-2.4) Total Bilirubin 0.3 mg/dL (0.2-1.0) Aspartate Amino Transf (AST/SGOT) 15 U/L (15-37) Alanine Aminotransferase (ALT/SGPT) 33 U/L (14-59) Alkaline Phosphatase 88 U/L (46-116) Troponin I Quantitative < 0.017 ng/mL (0.000-0.055) < 0.017 ng/mL (0.000-0.055) < 0.017 ng/mL (0.000-0.055) Total Protein 7.2 g/dL (6.4-8.2) Albumin 3.6 g/dL (3.4-5.0) Albumin/Globulin Ratio 1.0 (1.0-1.7) Lipase 222 U/L (73-393) Glucose (Fingerstick) 90 mg/dL (70-99) Test 12/12/20 21:15 SARS-CoV-2 Antigen (Rapid) Negative (NEGATIVE) Laboratory Tests Test 12/12/20 12:55 12/12/20 16:25 12/12/20 19:44 12/12/20 20:17 White Blood Count 9.7 x10^3/uL (4.0-11.0) Red Blood Count 2.95 x10^6/uL (3.50-5.40) Hemoglobin 9.9 g/dL (12.0-15.5) Hematocrit 29.9 % (36.0-47.0) Mean Corpuscular Volume 101 fL (79-100) Mean Corpuscular Hemoglobin 34 pg (25-35) Mean Corpuscular Hemoglobin Concent 33 g/dL (31-37) Red Cell Distribution Width 13.3 % (11.5-14.5) Platelet Count 248 x10^3/uL (140-400) Neutrophils (%) (Auto) 67 % (31-73) Lymphocytes (%) (Auto) 21 % (24-48) Monocytes (%) (Auto) 10 % (0-9) Eosinophils (%) (Auto) 2 % (0-3) Basophils (%) (Auto) 1 % (0-3) Neutrophils # (Auto) 6.4 x10^3/uL (1.8-7.7) Lymphocytes # (Auto) 2.0 x10^3/uL (1.0-4.8) Monocytes # (Auto) 0.9 x10^3/uL (0.0-1.1) Eosinophils # (Auto) 0.2 x10^3/uL (0.0-0.7) Basophils # (Auto) 0.1 x10^3/uL (0.0-0.2) Sodium Level 141 mmol/L (136-145) Potassium Level 3.5 mmol/L (3.5-5.1) Chloride Level 100 mmol/L (98-107) Carbon Dioxide Level 33 mmol/L (21-32) Anion Gap 8 (6-14) Blood Urea Nitrogen 20 mg/dL (7-20) Creatinine 3.8 mg/dL (0.6-1.0) Estimated GFR (Cockcroft-Gault) 12.0 BUN/Creatinine Ratio 5 (6-20) Glucose Level 141 mg/dL (70-99) Calcium Level 8.8 mg/dL (8.5-10.1) Magnesium Level 1.8 mg/dL (1.8-2.4) Total Bilirubin 0.3 mg/dL (0.2-1.0) Aspartate Amino Transf (AST/SGOT) 15 U/L (15-37) Alanine Aminotransferase (ALT/SGPT) 33 U/L (14-59) Alkaline Phosphatase 88 U/L (46-116) Troponin I Quantitative < 0.017 ng/mL (0.000-0.055) < 0.017 ng/mL (0.000-0.055) < 0.017 ng/mL (0.000-0.055) Total Protein 7.2 g/dL (6.4-8.2) Albumin 3.6 g/dL (3.4-5.0) Albumin/Globulin Ratio 1.0 (1.0-1.7) Lipase 222 U/L (73-393) Glucose (Fingerstick) 90 mg/dL (70-99) Test 12/12/20 21:15 SARS-CoV-2 Antigen (Rapid) Negative (NEGATIVE) Assessment/Plan Assessment/Plan IMP RIGHT TRIMALLEOLAR FX ANEMIA DM II HTN ESRD-TTS PLAN HD TTS [facility] OR TODAY WILL FOLLOW GALDINO URBANO MD Dec 13, 2020 11:55
[2020-12-13 14:26] VITALS: BP 154/89
[2020-12-13] MEDS ORDERED: ACET500T68 PO (17:15)
[2020-12-13] MEDS ORDERED: FURO80TA3 PO (17:15)
[2020-12-13] MEDS ORDERED: ACETAMINOPHEN 500 MG TABLET PO PRN (17:15)
[2020-12-13] MEDS: oxyCODONE IR 5 MG TABLET PO PRN (17:59)
[2020-12-13] MEDS: SEVELAMER CARBONATE 800 MG TABLET. PO SCH (18:00)
[2020-12-13] MEDS: CALCIUM ACETATE 667 MG CAPSULE PO SCH (18:01)
[2020-12-13 19:45] VITALS: BP 162/89
[2020-12-13] MEDS ORDERED: DARBEPOETIN ALFA 60 MCG/0.3 ML DISP.SYRIN. SQ SCH (21:00)
[2020-12-13] MEDS: ATORVASTATIN CALCIUM 10 MG TABLET. PO SCH (21:28)
[2020-12-13 22:40] VITALS: BP 146/75
[2020-12-14 03:40] VITALS: BP 128/62
[2020-12-14 07:00] VITALS: BP 154/75
[2020-12-14 08:46] LABS: HEMATOCRIT 25.7 % (36.0-47.0); HEMOGLOBIN 8.6 g/dL (12.0-15.5)
[2020-12-14] MEDS ORDERED: ASPIRIN CHEWABLE 81 MG TABLET. PO SCH (09:00)
[2020-12-14] MEDS: FOLIC/VIT B COMP W-C (RENAL) TABLET. PO SCH (09:12)
[2020-12-14] MEDS: CINACALCET HCL 30 MG TABLET PO SCH (09:13)
[2020-12-14] MEDS: SEVELAMER CARBONATE 800 MG TABLET. PO SCH ×3 (09:13→17:23)
[2020-12-14] MEDS: ASPIRIN 325 MG TABLET PO SCH (09:13)
[2020-12-14] MEDS: CALCIUM ACETATE 667 MG CAPSULE PO SCH ×3 (09:13→17:23)
[2020-12-14] MEDS: CHOLECALCIFEROL (VITAMIN D3) 1,000 UNIT TABLET PO SCH (09:13)
[2020-12-14] MEDS: FUROSEMIDE 80 MG TABLET. PO SCH (09:14)
[2020-12-14] MEDS ORDERED: AZITHROMYCIN 250 MG TABLET. PO ONE (10:00)
[2020-12-14 11:00] VITALS: BP 158/66
--- NOTE | 2020-12-14 11:28 | PDOC ---
[employer] PROGRESS NOTE Date of Service DOS: DATE: 12/14/20 TIME: 11:27 Chief Complaint Chief Complaint Syncope after dialysis, right ankle pain after fall History of Present Illness History of Present Illness 12/14/20 Patient seen and examined at bedside Chart reviewed Discussed with RN Discussed with case management Patient complained of pain under the jawline on the left side - possible bilate ral submandibular gland enlargement vs lymphadenopathy Discussed ordering emperic Z-Pack with pharmacy 12/12/20 The patient is a pleasant 65-year-old female who often gets weak and dizzy after dialysis. Today, she went to dialysis. She was doing relatively well. 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 She was bringing the food out from the grocery store to her 's car and then had a syncopal episode. She twisted her ankle and was brought to the ER here complaining of pain. We did some imaging. She does have a trimalleolar fracture. She rates her pain at 10/10. It is worse with moving, better sitting still. We are going to admit the patient and consult Orthopedics. Vitals/I&O Vitals/I&O: Vital Signs Date Time Temp Pulse Resp B/P (MAP) Pulse Ox O2 Delivery O2 Flow Rate FiO2 12/14/20 11:00 98.1 80 18 158/66 (96) 98 Room Air 98.1 12/13/20 14:47 2.0 I & O 12/13/20 12/13/20 12/14/20 15:00 23:00 07:00 Intake Total 1350 ml 450 ml 320 ml Output Total 350 ml Balance 1000 ml 450 ml 320 ml Physical Exam Physical Exam: Neck: Submandibular swelling bilaterally, tender on the left. General: Alert, Oriented X3, Cooperative, No acute distress Heart: Regular rate Lungs: Clear Abdomen: Normal bowel sounds, Soft, No tenderness Extremities: No cyanosis Skin: No breakdown Labs Labs: Laboratory Tests Test 12/14/20 08:00 Hemoglobin 8.6 g/dL (12.0-15.5) Hematocrit 25.7 % (36.0-47.0) Mean Corpuscular Hemoglobin Concent 34 g/dL (31-37) Assessment and Plan Assessmemt and Plan Problems Medical Problems: (1) Syncope Status: Acute Syncope with fall with traumatic right trimalleolar fracture. The patient will be admitted. We will consult orthopedics. Consult nephrology for dialysis. Home medications. Deep venous thrombosis prophylaxis. Full code. Will probably have to rule out for COVID-19 before she goes to surgery. IV normal saline. P.r.n. morphine. Assessment Syncope ESRD Plan Cardiac monitoring Emperic Z-Pack for bilateral submandibular enlargement (tender on left) vs lymphadenopathy Continue home medication PT/OT DVT Prophylaxis Full Code Social service assessment for SNU Comment Review of Relevant I have reviewed the following items luda (where applicable) has been applied. Medications: Current Medications Medications (Trade) Dose Ordered Sig/Indy Route PRN Reason Start Time Stop Time Status Last Admin Dose Admin Aspirin (Milton Aspirin) 325 mg DAILYWBKFT PO 12/14/20 08:00 12/14/20 09:13 Cefazolin Sodium/ Dextrose 50 ml @ 100 mls/hr Q6H IV 12/13/20 19:00 12/14/20 07:29 DC 12/14/20 06:35 Darbepoetin Shahram (ARANESP for DIALYSIS PTS) 60 mcg Wilson SQ 12/13/20 21:00 12/13/20 21:28 Cinacalcet (Sensipar) 30 mg DAILY PO 12/14/20 09:00 12/14/20 09:13 Vitamin B Complex/ Vitamin C (Lynsey-Sai) 1 tab DAILY PO 12/14/20 09:00 12/14/20 09:12 Furosemide (Lasix) 80 mg DAILY PO 12/14/20 09:00 12/14/20 09:14 Sevelamer Carbonate (Renvela) 2,400 mg TIDWMEALS PO 12/13/20 17:30 12/14/20 09:13 Calcium Acetate (Phoslo) 1,334 mg TIDWMEALS PO 12/13/20 17:30 12/14/20 09:13 Vitamin D (Vitamin D3) 1,000 unit DAILY PO 12/14/20 09:00 12/14/20 09:13 Azithromycin (Zithromax) 500 mg 1X ONCE PO 12/14/20 10:00 12/14/20 10:01 DC 12/14/20 11:08 Justifications for Admission Other Justification SAVANA HOBBS III DO Dec 14, 2020 11:28
[2020-12-14] MEDS: oxyCODONE IR 5 MG TABLET PO PRN (11:52)
--- NOTE | 2020-12-14 12:17 | PDOC ---
Renal-Progress Notes Subjective Notes Notes NO NEW COMPLAINTS History of Present Illness Hx of present illness STABLE Vitals Vitals Vital Signs Date Time Temp Pulse Resp B/P (MAP) Pulse Ox O2 Delivery O2 Flow Rate FiO2 12/14/20 11:52 Room Air 12/14/20 11:00 98.1 80 18 158/66 (96) 98 98.1 12/13/20 14:47 2.0 Weight Weight [ ] I.O. Intake and Output Intake and Output 12/14/20 07:00 Intake Total 2120 ml Output Total 350 ml Balance 1770 ml Intake Oral 1070 ml IV Total 1050 ml Output Urine Total 300 ml Estimated Blood Loss 50 ml Labs Labs Laboratory Tests Test 12/13/20 19:30 12/14/20 08:00 SARS-CoV-2 RNA (DARLYN) Negative (Negative) Hemoglobin 8.6 g/dL (12.0-15.5) Hematocrit 25.7 % (36.0-47.0) Mean Corpuscular Hemoglobin Concent 34 g/dL (31-37) Review of Systems Constitutional: yes: alert, oriented Ears/Nose/Throat: Yes: no symptom reported Eyes: Yes: no symptom reported Pulmonary: Yes no symptom reported Cardiovascular: Yes no symptom reported Gastrointestional: Yes: no symptom reported Genitourinary: Yes: no symptom reported Musculoskeletal: Yes: no symptom reported Skin: Yes no symptom reported Psychiatric/Neurological: Yes: no symptom reported Physical Exam General Appearance: no apparent distress Skin: warm Respiratory: bilateral CTA Heart: S1S2 Abdomen: soft, bowel sounds present Genitourinary: bladder flat Extremities: pulses present Neurology: alert Assessment Assessment IMP RIGHT TRIMALLEOLAR FX-SURGICAL REPAIR ANEMIA DM II HTN ESRD-TTS PLAN HD TOMORROW ARANESP WILL FOLLOW GADLINO URBANO MD Dec 14, 2020 12:17
--- NOTE | 2020-12-14 14:08 | PDOC ---
PROGRESS NOTES Date of Service DATE: 12/14/20 TIME: 14:05 Subjective Subjective Problems overnight: no acute events overnight. Pain controlled. Tolerating PO intake. Plans to discharge to half-way facility. Objective Vital Signs Vital Signs Date Time Temp Pulse Resp B/P (MAP) Pulse Ox O2 Delivery O2 Flow Rate FiO2 12/14/20 11:52 Room Air 12/14/20 11:00 98.1 80 18 158/66 (96) 98 98.1 12/13/20 14:47 2.0 Physical Exam Right lower extremity: Splint clean, dry, and intact. Distal neurovascular examination intact with capillary refill less than 2 seconds. Moves toes to command. Sensation intact light touch about the toes. Labs Laboratory Tests Test 12/12/20 16:25 12/12/20 19:44 12/12/20 20:17 12/12/20 21:15 Troponin I Quantitative < 0.017 ng/mL (0.000-0.055) < 0.017 ng/mL (0.000-0.055) Glucose (Fingerstick) 90 mg/dL (70-99) SARS-CoV-2 Antigen (Rapid) Negative (NEGATIVE) Test 12/13/20 19:30 12/14/20 08:00 SARS-CoV-2 RNA (DARLYN) Negative (Negative) Hemoglobin 8.6 g/dL (12.0-15.5) Hematocrit 25.7 % (36.0-47.0) Mean Corpuscular Hemoglobin Concent 34 g/dL (31-37) Laboratory Tests Test 12/13/20 19:30 12/14/20 08:00 SARS-CoV-2 RNA (DARLYN) Negative (Negative) Hemoglobin 8.6 g/dL (12.0-15.5) Hematocrit 25.7 % (36.0-47.0) Mean Corpuscular Hemoglobin Concent 34 g/dL (31-37) Assessment Assessment POD# 1 status post ORIF right trimalleolar ankle fracture Plan Plan of Care Nonweightbearing right lower extremity. Recommend 30 days DVT prophylaxis. Plan follow-up in 2 weeks for recheck with staple removal and conversion to a walking boot. Anticipate 6-week period of nonweightbearing. Stable for discharge from orthopedic standpoint. Will sign off. Justicifation of Admission Dx: Justifications for Admission: Justification of Admission Dx: Yes (ankle fracture) BETZAIDA CALLOWAY MD Dec 14, 2020 14:08
[2020-12-14 15:00] VITALS: BP 148/66
--- NOTE | 2020-12-14 15:36 | NUR ---
SW following. Discussed with RN, pt from home, room air, renal diet, rapid COVID-19 negative. Pt does dialysis T,[facility], [facility] in [place]. PT/OT recommending SNF. SW met with pt, pt agreeable to SNF, would like [facility] if they are in network - otherwise does not have a preference for facility, but would like somewhere in [place]. SW spoke with Héctor at [facility], they are in network with pt's insurance. GILBERTO requested Xin (meeting/event planner) fax referral to [facility]. Choice of vendor form not yet completed. SW will continue to follow.
[2020-12-14] MEDS ORDERED: CALCIUM CARBONATE 500 MG TAB.CHEW PO PRN (17:45)
[2020-12-14 19:45] VITALS: BP 163/70
[2020-12-14] MEDS: ATORVASTATIN CALCIUM 10 MG TABLET. PO SCH (20:13)
[2020-12-14] MEDS: LACTOBACILLUS RHAMNOSUS GG 1 CAPSULE. PO SCH (20:13)
[2020-12-14 23:20] VITALS: BP 153/65
[2020-12-15 03:20] VITALS: BP 140/62
[2020-12-15 06:01] LABS: HEMATOCRIT 25.3 % (36.0-47.0); HEMOGLOBIN 8.1 g/dL (12.0-15.5); RED BLOOD COUNT 2.45 x10^6/uL (3.50-5.40); RED CELL DISTRIBUTION WIDTH 13.6 % (11.5-14.5); WHITE BLOOD COUNT 12.9 x10^3/uL (4.0-11.0)
[2020-12-15 06:19] LABS: CALCIUM 9.1 mg/dL (8.5-10.1); CREATININE 8.8 mg/dL (0.6-1.0); GFR 4.6; POTASSIUM 5.2 mmol/L (3.5-5.1)
[2020-12-15] MEDS ORDERED: IV NORMAL SALINE 1000ML BAG 1,000 ML IV PRN ×2 (08:00)
[2020-12-15] MEDS: CALCIUM ACETATE 667 MG CAPSULE PO SCH ×3 (08:00→16:46)
[2020-12-15] MEDS: SEVELAMER CARBONATE 800 MG TABLET. PO SCH ×3 (08:00→16:46)
[2020-12-15] MEDS ORDERED: ALBUMIN HUMAN 25% 200 ML IV PRN (08:00)
[2020-12-15] MEDS ORDERED: diphenhydrAMINE 50 MG/ML VIAL IV PRN (08:00)
[2020-12-15] MEDS ORDERED: DIALYSIS PATIENT. MC PRN ×3 (08:00)
[2020-12-15] MEDS ORDERED: ACETAMINOPHEN 500 MG TABLET PO PRN (08:00)
--- NOTE | 2020-12-15 10:40 | PDOC ---
Renal-Progress Notes Subjective Notes Notes NO NEW COMPLAINTS History of Present Illness Hx of present illness STABLE Vitals Vitals Vital Signs Date Time Temp Pulse Resp B/P (MAP) Pulse Ox O2 Delivery O2 Flow Rate FiO2 12/15/20 08:00 Room Air 12/15/20 03:20 97.9 88 20 140/62 (88) 96 97.9 Weight Weight [ ] I.O. Intake and Output Intake and Output 12/15/20 07:00 Intake Total 1140 ml Output Total 400 ml Balance 740 ml Intake Oral 1140 ml Output Urine Total 400 ml Labs Labs Laboratory Tests Test 12/15/20 05:40 White Blood Count 12.9 x10^3/uL (4.0-11.0) Red Blood Count 2.45 x10^6/uL (3.50-5.40) Hemoglobin 8.1 g/dL (12.0-15.5) Hematocrit 25.3 % (36.0-47.0) Mean Corpuscular Volume 103 fL (79-100) Mean Corpuscular Hemoglobin 33 pg (25-35) Mean Corpuscular Hemoglobin Concent 32 g/dL (31-37) Red Cell Distribution Width 13.6 % (11.5-14.5) Platelet Count 241 x10^3/uL (140-400) Sodium Level 141 mmol/L (136-145) Potassium Level 5.2 mmol/L (3.5-5.1) Chloride Level 103 mmol/L (98-107) Carbon Dioxide Level 24 mmol/L (21-32) Anion Gap 14 (6-14) Blood Urea Nitrogen 65 mg/dL (7-20) Creatinine 8.8 mg/dL (0.6-1.0) Estimated GFR (Cockcroft-Gault) 4.6 Glucose Level 88 mg/dL (70-99) Calcium Level 9.1 mg/dL (8.5-10.1) Review of Systems Constitutional: yes: alert, oriented Ears/Nose/Throat: Yes: no symptom reported Eyes: Yes: no symptom reported Pulmonary: Yes no symptom reported Cardiovascular: Yes no symptom reported Gastrointestional: Yes: no symptom reported Genitourinary: Yes: no symptom reported Musculoskeletal: Yes: no symptom reported Skin: Yes no symptom reported Psychiatric/Neurological: Yes: no symptom reported Physical Exam General Appearance: no apparent distress Skin: warm Respiratory: bilateral CTA Heart: S1S2 Abdomen: soft, bowel sounds present Genitourinary: bladder flat Extremities: pulses present Neurology: alert Assessment Assessment IMP RIGHT TRIMALLEOLAR FX-SURGICAL REPAIR ANEMIA DM II HTN ESRD-TTS PLAN HD TODAY UF TO [facility] SKILLED PLACEMENT PENDING WILL FOLLOW GALDINO URBANO MD Dec 15, 2020 10:40
--- NOTE | 2020-12-15 11:13 | NUR ---
SS following for discharge planning. SS reviewed pt chart and discussed with pt RN. Pt is from home with spouse and is currently on room air. COVID19 negative. Pt had right ankle surgery on 12/13/2020. Pt has outpatient dialysis at [facility], ; fax [phone], Monday, , and Monday at 0700. PT/OT recommended fpc unit. Pt and pt's family requesting to go to [facility], ; fax [phone]. SS was informed that referral was phoned and faxed on 12/14/2020. SS contacted [facility] to follow up on acceptance decision. [facility] reported that referral has not been received at this time. SS re-faxed referral to [facility]. SS will continue to follow for discharge planning.
--- NOTE | 2020-12-15 11:33 | PDOC ---
[employer] PROGRESS NOTE Date of Service DOS: DATE: 12/15/20 TIME: 11:32 Chief Complaint Chief Complaint Syncope after dialysis, right ankle pain after fall History of Present Illness History of Present Illness 12/15/20 Patient seen and examined during dialysis Chart reviewed Discussed with RN Discussed with case management Possible discharge to SNF 12/14/20 Patient seen and examined at bedside Chart reviewed Discussed with RN Discussed with case management Patient complained of pain under the jawline on the left side - possible bilateral submandibular gland enlargement vs lymphadenopathy Discussed ordering emperic Z-Pack with pharmacy 12/12/20 The patient is a pleasant 65-year-old female who often gets weak and dizzy after dialysis. Today, she went to dialysis. She was doing relatively well. 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 She was bringing the food out from the grocery store to her 's car and then had a syncopal episode. She twisted her ankle and was brought to the ER here complaining of pain. We did some imaging. She does have a trimalleolar fracture. She rates her pain at 10/10. It is worse with moving, better sitting still. We are going to admit the patient and consult Orthopedics. Vitals/I&O Vitals/I&O: Vital Signs Date Time Temp Pulse Resp B/P (MAP) Pulse Ox O2 Delivery O2 Flow Rate FiO2 12/15/20 08:00 Room Air 12/15/20 03:20 97.9 88 20 140/62 (88) 96 97.9 l I & O 12/14/20 12/14/20 12/15/20 15:00 23:00 07:00 Intake Total 500 ml 200 ml 440 ml Output Total 400 ml Balance 500 ml -200 ml 440 ml Physical Exam Physical Exam: Neck: Submandibular swelling bilaterally, tender on the left. General: Alert, Oriented X3, Cooperative, No acute distress Heart: Regular rate Lungs: Clear Abdomen: Normal bowel sounds, Soft, No tenderness Extremities: No cyanosis Skin: No breakdown Labs Labs: Laboratory Tests Test 12/15/20 05:40 White Blood Count 12.9 x10^3/uL (4.0-11.0) Red Blood Count 2.45 x10^6/uL (3.50-5.40) Hemoglobin 8.1 g/dL (12.0-15.5) Hematocrit 25.3 % (36.0-47.0) Mean Corpuscular Volume 103 fL (79-100) Mean Corpuscular Hemoglobin 33 pg (25-35) Mean Corpuscular Hemoglobin Concent 32 g/dL (31-37) Red Cell Distribution Width 13.6 % (11.5-14.5) Platelet Count 241 x10^3/uL (140-400) Sodium Level 141 mmol/L (136-145) Potassium Level 5.2 mmol/L (3.5-5.1) Chloride Level 103 mmol/L (98-107) Carbon Dioxide Level 24 mmol/L (21-32) Anion Gap 14 (6-14) Blood Urea Nitrogen 65 mg/dL (7-20) Creatinine 8.8 mg/dL (0.6-1.0) Estimated GFR (Cockcroft-Gault) 4.6 Glucose Level 88 mg/dL (70-99) Calcium Level 9.1 mg/dL (8.5-10.1) Hepatitis B Surface Antigen Nonreactive (Nonreactive) Hepatitis B Surface Antibody Nonreactive Assessment and Plan Assessmemt and Plan Problems Medical Problems: (1) Syncope Status: Acute Assessment Syncope ESRD Plan Cardiac monitoring Emperic Z-Pack for bilateral submandibular enlargement (tender on left) vs l ymphadenopathy Continue home medication PT/OT DVT Prophylaxis Full Code Potential discharge to SNF Comment Review of Relevant I have reviewed the following items luda (where applicable) has been applied. Medications: Current Medications Medications (Trade) Dose Ordered Sig/Indy Route PRN Reason Start Time Stop Time Status Last Admin Dose Admin Lactobacillus Rhamnosus (Culturelle) 1 cap BID PO 12/14/20 21:00 12/14/20 20:13 Calcium Carbonate/ Glycine (Tums) 500 mg PRN AFTMEALHC PRN PO INDIGESTION 12/14/20 17:45 12/14/20 18:43 Justifications for Admission Other Justification SAVANA HOBBS III DO Dec 15, 2020 11:33
[2020-12-15] MEDS: CHOLECALCIFEROL (VITAMIN D3) 1,000 UNIT TABLET PO SCH (11:41)
[2020-12-15] MEDS: ASPIRIN 325 MG TABLET PO SCH (11:41)
[2020-12-15] MEDS: FOLIC/VIT B COMP W-C (RENAL) TABLET. PO SCH (11:41)
[2020-12-15] MEDS: AZITHROMYCIN 250 MG TABLET. PO SCH (11:41)
[2020-12-15] MEDS: LACTOBACILLUS RHAMNOSUS GG 1 CAPSULE. PO SCH ×2 (11:41→20:53)
[2020-12-15] MEDS: CINACALCET HCL 30 MG TABLET PO SCH (11:41)
[2020-12-15] MEDS: FUROSEMIDE 80 MG TABLET. PO SCH (11:42)
[2020-12-15 12:21] VITALS: BP 153/51
[2020-12-15] MEDS ORDERED: AZIT250T6 PO (12:27)
[2020-12-15] MEDS ORDERED: OXYC5TAB4 PO (12:27)
--- NOTE | 2020-12-15 12:28 | SNU/HH DC ---
DISCHARGE ORDERS DISCHARGE INFORMATION: FINAL DIAGNOSIS Problems Medical Problems: (1) Syncope Status: Acute CONDITION ON DISCHARGE: Stable CODE STATUS: Code Status: Full RETIREMENT: SNF STAY <30 DAYS: Yes HOSPICE: HOSPICE: No HOSPICE EVAL & TREAT: No LTAC: ADMIT TO LTAC: No POST DISCHARGE ORDERS: ACTIVITY ORDERS: No restrictions, Resume previous activity, Activity as tolerated WEIGHT BEARING STATUS: No restrictions, As tolerated DIET AFTER DISCHARGE: Cardiac TREATMENT/EQUIPMENT ORDERS: ADAPTIVE EQUIPMENT NEEDED: None Physical Therapy For: Evalulation/Treatment Occupational Therapy For: Evaluation/Treatment DISCHARGE MEDICATIONS: Home Meds Active Scripts Oxycodone Hcl (OXYCODONE HCL IMMED.RELEASE ) 5 Mg Tablet, 5 MG PO PRN Q3HRS PRN for MODERATE-SEVERE PAIN, #30 TAB Prov:CASTLE,NIAL K III DO 12/15/20 Azithromycin (AZITHROMYCIN TABLET) 250 Mg Tablet, 250 MG PO DAILY for uri, #10 TAB Prov:CASTLE,NIAL K III DO 12/15/20 Reported Medications Acetaminophen (ACETAMINOPHEN) 500 Mg Tablet, 2 TAB PO PRN Q6HRS PRN for pain or fever for 15 Days, #60 TAB 0 Refills 12/13/20 Furosemide (FUROSEMIDE) 80 Mg Tablet, 1 TAB PO DAILY for take daily on non- dialysis day, #30 TAB 5 Refills 12/13/20 Calcium Acetate (CALCIUM ACETATE) 667 Mg Tablet, 2 TAB PO TID for REPLACE CALIUM for 30 Days, #180 TAB 0 Refills 12/12/20 Sevelamer Carbonate (RENVELA) 800 Mg Tablet, 3 TAB PO TID for PHOSPHATE BINDER for 30 Days, #270 TAB 0 Refills 12/12/20 Folic Acid/Vitamin B Comp W-C (RADHIKA-PETE TABLET) 0.8 Mg Tablet, 1 TAB PO DAILY for VIT REPLACEMENT for 30 Days, #30 TAB 0 Refills 12/12/20 Aspirin (Children's Aspirin) 81 Mg Tab.chew, 81 MG PO DAILY for heart, TAB.CHEW 02/27/20 Cinacalcet Hcl (SENSIPAR) 30 Mg Tablet, 30 MG PO DAILY for kidneys, TAB 02/27/20 Atorvastatin Calcium (ATORVASTATIN CALCIUM) 10 Mg Tablet, 10 MG PO HS for FOR CHOLESTEROL, #30 TAB 0 Refills On Mondays and Fridays02/27/20 Cholecalciferol (Vitamin D3) (VITAMIN D) 2,000 Unit Capsule, 1000 UNIT PO DAILY for nutritional supplement 1000 units daily 07/07/16 Discontinued Reported Medications Minocycline Hcl (MINOCYCLINE HCL) 100 Mg Capsule, 100 MG PO DAILY for kidney, CAP 02/27/20 SAVANA HOBBS III DO Dec 15, 2020 12:28
--- NOTE | 2020-12-15 13:50 | NUR ---
SS following up with discharge planning. SS received phone contact from [facility] stating that pt has $225 co-pay/day for [facility] unit for days 1-45. Pt has out of pocket max of $10,000 and has only met less than $2000. SS met with pt and spouse and discussed. Pt reported that they cannot afford that much out of pocket expense. Pt requested SS to phone and fax referral to [facility], ; fax [phone], to see if co-pay would be less. SS phoned and faxed referral to [facility] as requested. SS will continue to follow for discharge planning.
[2020-12-15 15:00] VITALS: BP 170/59
[2020-12-15 19:45] VITALS: BP 141/61
[2020-12-15] MEDS: ATORVASTATIN CALCIUM 10 MG TABLET. PO SCH (20:53)
--- NOTE | 2020-12-15 20:55 | DS ---
DATE OF DISCHARGE: 12/15/2020 ADMISSION DIAGNOSIS: Fall with trimalleolar fracture. DISCHARGE DIAGNOSES: Postop open reduction and internal fixation of the trimalleolar fracture, overweight, end-stage renal disease on dialysis, diabetes, hypertension, hyperlipidemia, chronic edema. HOSPITAL COURSE: The patient is a pleasant, middle-aged female, who presented with syncopal episode and then she suffered a right trimalleolar fracture. She was admitted. We did cardiac monitoring. We consulted nephrology and orthopedics. She was taken for ORIF of the right trimalleolar fracture. Over the past couple of days, she is doing better. She is still on dialysis and needing rehabilitation. She is quite weak. We will plan to discharge to group home. DISPOSITION: snf today. ACTIVITY: As tolerated. DIET: Renal. DISCHARGE MEDICATIONS: Z-Balwinder, oxycodone 5 mg p.o. every 3 hours p.r.n., p.r.n. Lortab, Tylenol 500 every 6 hours p.r.n., aspirin 81 a day, atorvastatin 10 a day, calcium acetate 2 tabs actually t.i.d., vitamin D, Sensipar 30 mg daily, folic acid, Lasix 80 a day and Renvela 3 tabs t.i.d. Total time 34 minutes. ROSE PURCELL: [facility] TID: [id number]
[2020-12-15 22:40] VITALS: BP 134/66
[2020-12-16 03:10] VITALS: BP 137/68
[2020-12-16 07:29] VITALS: BP 138/66
[2020-12-16] MEDS: ASPIRIN 325 MG TABLET PO SCH (08:10)
[2020-12-16] MEDS: AZITHROMYCIN 250 MG TABLET. PO SCH (08:11)
[2020-12-16] MEDS: CINACALCET HCL 30 MG TABLET PO SCH (08:11)
[2020-12-16] MEDS: CALCIUM ACETATE 667 MG CAPSULE PO SCH ×3 (08:11→17:44)
[2020-12-16] MEDS: SEVELAMER CARBONATE 800 MG TABLET. PO SCH ×3 (08:11→17:44)
[2020-12-16] MEDS: LACTOBACILLUS RHAMNOSUS GG 1 CAPSULE. PO SCH ×2 (08:11→20:34)
[2020-12-16] MEDS: FOLIC/VIT B COMP W-C (RENAL) TABLET. PO SCH (08:11)
[2020-12-16] MEDS: CHOLECALCIFEROL (VITAMIN D3) 1,000 UNIT TABLET PO SCH (08:11)
[2020-12-16] MEDS: FUROSEMIDE 80 MG TABLET. PO SCH (08:12)
[2020-12-16] MEDS: oxyCODONE IR 5 MG TABLET PO PRN ×2 (08:12→12:14)
--- NOTE | 2020-12-16 10:16 | PDOC ---
[employer] PROGRESS NOTE Date of Service DOS: DATE: 12/16/20 TIME: 10:13 Chief Complaint Chief Complaint Syncope after dialysis, right ankle pain after fall ESRD obese, BMI 43 new trimalleolar fracture right ankle weakess, chronic anemia of ESRD dm2 History of Present Illness History of Present Illness 12/16, she now says she was worknig for [employer] when she injured her ankle new ankle fracture, pain OK, knee pain is chronic she is doing well with therapy, copay is too high for her to afford SNU dc today cont current 12/15/20 Patient seen and examined during dialysis Chart reviewed Discussed with RN Discussed with case management Possible discharge to SNF 12/14/20 Patient seen and examined at bedside Chart reviewed Discussed with RN Discussed with case management Patient complained of pain under the jawline on the left side - possible bilateral submandibular gland enlargement vs lymphadenopathy Discussed ordering emperic Z-Pack with pharmacy 12/12/20 The patient is a pleasant 65-year-old female who often gets weak and dizzy after dialysis. Today, she went to dialysis. She was doing relatively well. 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 She was bringing the food out from the grocery store to her 's car and then had a syncopal episode. She twisted her ankle and was brought to the ER here complaining of pain. We did some imaging. She does have a trimalleolar fracture. She rates her pain at 10/10. It is worse with moving, better sitting still. We are going to admit the patient and consult Orthopedics. Vitals/I&O Vitals/I&O: Vital Signs Date Time Temp Pulse Resp B/P (MAP) Pulse Ox O2 Delivery O2 Flow Rate FiO2 12/16/20 08:12 Room Air 12/16/20 07:29 97.9 82 18 138/66 (90) 98 97.9 I & O 12/15/20 12/15/20 12/16/20 15:00 23:00 07:00 Intake Total 400 ml 300 ml Balance 400 ml 300 ml Physical Exam Physical Exam: Neck: Submandibular swelling bilaterally, tender on the left. General: Alert, Oriented X3, Cooperative, No acute distress Heart: Regular rate Lungs: Clear Abdomen: Normal bowel sounds, Soft, No tenderness Extremities: No cyanosis Skin: No breakdown Assessment and Plan Assessmemt and Plan Problems Medical Problems: (1) Syncope Status: Acute Comment Review of Relevant I have reviewed the following items luda (where applicable) has been applied. Justifications for Admission Other Justification TIFFANY PAINTER MD Dec 16, 2020 10:16
[2020-12-16 11:00] VITALS: BP 137/72
--- NOTE | 2020-12-16 12:18 | NUR ---
SS following up with discharge planning. SS reviewed pt chart and discussed with pt RN. Pt is currently on room air. COVID19 negative. PT[facility]OT [facility]. Pt declining [facility] at this time due to co-pay of $225/day. SS received notification from [facility] stating that pt's insurance will not pay for Acute Rehabilitation Facility for pt's on dialysis. [facility] declined pt. SS met with pt and pt's spouse in room and discussed. Pt reported that she will have to return to home with home healthcare when ready. Pt NWB on one foot. Pt will possibly need wheelchair for home. Pt's RN notified. 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 Pt reported that she is filing a claim for workers comp. SS will continue to follow for discharge planning.
--- NOTE | 2020-12-16 12:33 | PDOC ---
Renal-Progress Notes Subjective Notes Notes NO NEW COMPLAINTS History of Present Illness Hx of present illness STABLE Vitals Vitals Vital Signs Date Time Temp Pulse Resp B/P (MAP) Pulse Ox O2 Delivery O2 Flow Rate FiO2 12/16/20 12:14 Room Air 12/16/20 07:29 97.9 82 18 138/66 (90) 98 97.9 Weight Weight [ ] I.O. Intake and Output Intake and Output 12/16/20 07:00 Intake Total 700 ml Balance 700 ml Intake Oral 700 ml Review of Systems Constitutional: yes: alert, oriented Ears/Nose/Throat: Yes: no symptom reported Eyes: Yes: no symptom reported Pulmonary: Yes no symptom reported Cardiovascular: Yes no symptom reported Gastrointestional: Yes: no symptom reported Genitourinary: Yes: no symptom reported Musculoskeletal: Yes: no symptom reported Skin: Yes no symptom reported Psychiatric/Neurological: Yes: no symptom reported Physical Exam General Appearance: no apparent distress Skin: warm Respiratory: bilateral CTA Heart: S1S2 Abdomen: soft, bowel sounds present Genitourinary: bladder flat Extremities: pulses present Neurology: alert Assessment Assessment IMP RIGHT TRIMALLEOLAR FX-SURGICAL REPAIR ANEMIA DM II HTN ESRD-TTS PLAN HD TOMORROW ARANESP SKILLED PLACEMENT PENDING WILL FOLLOW GALDINO URBANO MD Dec 16, 2020 12:33
[2020-12-16 15:00] VITALS: BP 144/70
--- NOTE | 2020-12-16 16:24 | NUR ---
SS following up with discharge planning. Pt's spouse reported that pt has wheelchair, scooter, and toilet riser at home. He reported that the home is one level and pt can get in back door. SS was notified that pt's wheelchair cannot fit in the bathroom. Per PT, pt will need drop arm commode and slide board for home.
[2020-12-16 19:33] VITALS: BP 142/57
[2020-12-16] MEDS: ATORVASTATIN CALCIUM 10 MG TABLET. PO SCH (20:34)
[2020-12-16 22:50] VITALS: BP 145/64
[2020-12-17 03:40] VITALS: BP 145/71
[2020-12-17 04:40] LABS: HEMATOCRIT 25.2 % (36.0-47.0); HEMOGLOBIN 8.2 g/dL (12.0-15.5); RED BLOOD COUNT 2.46 x10^6/uL (3.50-5.40); RED CELL DISTRIBUTION WIDTH 12.8 % (11.5-14.5); WHITE BLOOD COUNT 11.4 x10^3/uL (4.0-11.0)
[2020-12-17 04:48] LABS: CALCIUM 8.9 mg/dL (8.5-10.1); CREATININE 7.7 mg/dL (0.6-1.0); GFR 5.3; POTASSIUM 4.3 mmol/L (3.5-5.1)
[2020-12-17 07:00] VITALS: BP 147/73
[2020-12-17] MEDS ORDERED: DIALYSIS PATIENT. MC PRN ×2 (08:15)
[2020-12-17] MEDS ORDERED: IV NORMAL SALINE 1000ML BAG 1,000 ML IV PRN ×2 (08:15)
[2020-12-17] MEDS ORDERED: ALBUMIN HUMAN 25% 200 ML IV PRN (08:15)
[2020-12-17] MEDS: CHOLECALCIFEROL (VITAMIN D3) 1,000 UNIT TABLET PO SCH (08:27)
[2020-12-17] MEDS: LACTOBACILLUS RHAMNOSUS GG 1 CAPSULE. PO SCH ×2 (08:27→21:22)
[2020-12-17] MEDS: CALCIUM ACETATE 667 MG CAPSULE PO SCH ×3 (08:27→17:22)
[2020-12-17] MEDS: ASPIRIN 325 MG TABLET PO SCH (08:27)
[2020-12-17] MEDS: SEVELAMER CARBONATE 800 MG TABLET. PO SCH ×3 (08:27→17:21)
[2020-12-17] MEDS: FOLIC/VIT B COMP W-C (RENAL) TABLET. PO SCH (08:27)
[2020-12-17] MEDS: CINACALCET HCL 30 MG TABLET PO SCH (08:28)
[2020-12-17] MEDS: FUROSEMIDE 80 MG TABLET. PO SCH (08:29)
[2020-12-17] MEDS: AZITHROMYCIN 250 MG TABLET. PO SCH (08:29)
--- NOTE | 2020-12-17 08:50 | NUR ---
Transported to dialysis by bed.
--- NOTE | 2020-12-17 11:39 | NUR ---
SS following up with discharge planning. SS reviewed pt chart and discussed with pt RN. Pt is currently on room air. COVID19 negative. PT/OT recommended jail unit. Pt unable to pay insurance co-pay for jail unit. Pt requesting home healthcare at discharge. Pt accepted on services with [facility], ; fax [phone]. Script received for drop arm commode and slide board. SS phoned and faxed script and clinical to [facility], ; fax [phone]. SS spoke with Elmer at [facility] and he confirmed that script and clinical were received. SS currently awaiting delivery of equipment. SS will continue to follow for discharge planning.
--- NOTE | 2020-12-17 12:10 | PDOC ---
Renal-Progress Notes Subjective Notes Notes NO NEW COMPLAINTS History of Present Illness Hx of present illness STABLE Vitals Vitals Vital Signs Date Time Temp Pulse Resp B/P (MAP) Pulse Ox O2 Delivery O2 Flow Rate FiO2 12/17/20 08:00 Room Air 12/17/20 07:00 97.9 90 20 147/73 (97) 97 97.9 Weight Weight [ ] I.O. Intake and Output Intake and Output 12/17/20 07:00 Intake Total 990 ml Output Total 325 ml Balance 665 ml Intake Oral 990 ml Output Urine Total 325 ml # Voids 2 Labs Labs Laboratory Tests Test 12/17/20 04:00 White Blood Count 11.4 x10^3/uL (4.0-11.0) Red Blood Count 2.46 x10^6/uL (3.50-5.40) Hemoglobin 8.2 g/dL (12.0-15.5) Hematocrit 25.2 % (36.0-47.0) Mean Corpuscular Volume 103 fL (79-100) Mean Corpuscular Hemoglobin 33 pg (25-35) Mean Corpuscular Hemoglobin Concent 33 g/dL (31-37) Red Cell Distribution Width 12.8 % (11.5-14.5) Platelet Count 262 x10^3/uL (140-400) Sodium Level 139 mmol/L (136-145) Potassium Level 4.3 mmol/L (3.5-5.1) Chloride Level 102 mmol/L (98-107) Carbon Dioxide Level 28 mmol/L (21-32) Anion Gap 9 (6-14) Blood Urea Nitrogen 56 mg/dL (7-20) Creatinine 7.7 mg/dL (0.6-1.0) Estimated GFR (Cockcroft-Gault) 5.3 Glucose Level 83 mg/dL (70-99) Calcium Level 8.9 mg/dL (8.5-10.1) Review of Systems Constitutional: yes: alert, oriented Ears/Nose/Throat: Yes: no symptom reported Eyes: Yes: no symptom reported Pulmonary: Yes no symptom reported Cardiovascular: Yes no symptom reported Gastrointestional: Yes: no symptom reported Genitourinary: Yes: no symptom reported Musculoskeletal: Yes: no symptom reported Skin: Yes no symptom reported Psychiatric/Neurological: Yes: no symptom reported Physical Exam General Appearance: no apparent distress Skin: warm Respiratory: bilateral CTA Heart: S1S2 Abdomen: soft, bowel sounds present Genitourinary: bladder flat Extremities: pulses present Neurology: alert Assessment Assessment IMP RIGHT TRIMALLEOLAR FX-SURGICAL REPAIR ANEMIA DM II HTN ESRD-TTS PLAN HD TODAY UF TO [facility] SKILLED PLACEMENT PENDING WILL FOLLOW GALDINO URBANO MD Dec 17, 2020 12:10
--- NOTE | 2020-12-17 13:00 | NUR ---
Return to unit from dialysis by bed. No c/o at this time. Lunch tray ordered. Spouse at bedside.
--- NOTE | 2020-12-17 13:57 | PDOC ---
[employer] PROGRESS NOTE Date of Service DOS: DATE: 12/17/20 TIME: 13:56 Chief Complaint Chief Complaint Syncope after dialysis, right ankle pain after fall ESRD obese, BMI 43 new trimalleolar fracture right ankle weakess, chronic anemia of ESRD dm2 History of Present Illness History of Present Illness 12/17, seen at HD, str better and Pain OK, cont current, DC plan started, with slide board and drop-arm commode needed, 12/16, she now says she was worknig for [employer] when she injured her ankle new ankle fracture, pain OK, knee pain is chronic she is doing well with therapy, copay is too high for her to afford SNU dc today cont current 12/15/20 Patient seen and examined during dialysis Chart reviewed Discussed with RN Discussed with case management Possible discharge to SNF 12/14/20 Patient seen and examined at bedside Chart reviewed Discussed with RN Discussed with case management Patient complained of pain under the jawline on the left side - possible bilateral submandibular gland enlargement vs lymphadenopathy Discussed ordering emperic Z-Pack with pharmacy 12/12/20 The patient is a pleasant 65-year-old female who often gets weak and dizzy after dialysis. Today, she went to dialysis. She was doing relatively well. 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 She was bringing the food out from the grocery store to her 's car and then had a syncopal episode. She twisted her ankle and was brought to the ER here complaining of pain. We did some imaging. She does have a trimalleolar fracture. She rates her pain at 10/10. It is worse with moving, better sitting still. We are going to admit the patient and consult Orthopedics. Vitals/I&O Vitals/I&O: Vital Signs Date Time Temp Pulse Resp B/P (MAP) Pulse Ox O2 Delivery O2 Flow Rate FiO2 12/17/20 08:00 Room Air 12/17/20 07:00 97.9 90 20 147/73 (97) 97 97.9 I & O 12/16/20 12/16/20 12/17/20 15:00 23:00 07:00 Intake Total 490 ml 300 ml 200 ml Output Total 325 ml Balance 490 ml 300 ml -125 ml Physical Exam Physical Exam: Neck: Submandibular swelling bilaterally, tender on the left. General: Alert, Oriented X3, Cooperative, No acute distress Heart: Regular rate Lungs: Clear Abdomen: Normal bowel sounds, Soft, No tenderness Extremities: No cyanosis Skin: No breakdown Labs Labs: Laboratory Tests Test 12/17/20 04:00 White Blood Count 11.4 x10^3/uL (4.0-11.0) Red Blood Count 2.46 x10^6/uL (3.50-5.40) Hemoglobin 8.2 g/dL (12.0-15.5) Hematocrit 25.2 % (36.0-47.0) Mean Corpuscular Volume 103 fL (79-100) Mean Corpuscular Hemoglobin 33 pg (25-35) Mean Corpuscular Hemoglobin Concent 33 g/dL (31-37) Red Cell Distribution Width 12.8 % (11.5-14.5) Platelet Count 262 x10^3/uL (140-400) Sodium Level 139 mmol/L (136-145) Potassium Level 4.3 mmol/L (3.5-5.1) Chloride Level 102 mmol/L (98-107) Carbon Dioxide Level 28 mmol/L (21-32) Anion Gap 9 (6-14) Blood Urea Nitrogen 56 mg/dL (7-20) Creatinine 7.7 mg/dL (0.6-1.0) Estimated GFR (Cockcroft-Gault) 5.3 Glucose Level 83 mg/dL (70-99) Calcium Level 8.9 mg/dL (8.5-10.1) Assessment and Plan Assessmemt and Plan Problems Medical Problems: (1) Syncope Status: Acute Comment Review of Relevant I have reviewed the following items luda (where applicable) has been applied. Justifications for Admission Other Justification TIFFANY PAINTER MD Dec 17, 2020 13:57
[2020-12-17 15:00] VITALS: BP 124/85
[2020-12-17] MEDS: oxyCODONE IR 5 MG TABLET PO PRN (16:22)
[2020-12-17 18:58] VITALS: BP 128/71
[2020-12-17] MEDS: ATORVASTATIN CALCIUM 10 MG TABLET. PO SCH (21:22)
[2020-12-17 23:00] VITALS: BP 110/58
[2020-12-18 03:00] VITALS: BP 118/57
[2020-12-18 07:00] VITALS: BP 132/67
[2020-12-18] MEDS: SEVELAMER CARBONATE 800 MG TABLET. PO SCH (08:11)
[2020-12-18] MEDS: CALCIUM ACETATE 667 MG CAPSULE PO SCH (08:11)
[2020-12-18] MEDS: CINACALCET HCL 30 MG TABLET PO SCH (08:11)
[2020-12-18] MEDS: LACTOBACILLUS RHAMNOSUS GG 1 CAPSULE. PO SCH (08:11)
[2020-12-18] MEDS: ASPIRIN 325 MG TABLET PO SCH (08:11)
[2020-12-18] MEDS: CHOLECALCIFEROL (VITAMIN D3) 1,000 UNIT TABLET PO SCH (08:11)
[2020-12-18] MEDS: FUROSEMIDE 80 MG TABLET. PO SCH (08:11)
[2020-12-18] MEDS: FOLIC/VIT B COMP W-C (RENAL) TABLET. PO SCH (08:11)
[2020-12-18] MEDS: AZITHROMYCIN 250 MG TABLET. PO SCH (08:12)
--- NOTE | 2020-12-18 09:28 | SNU/HH DC ---
DISCHARGE WITH HOME HEALTH DISCHARGE INFORMATION: Discharge Date: Dec 18, 2020 Final Diagnosis: OA kness new right ankle fracture, trimalleolar ESRD obese, BMI 43 weakness, debiliity Problems Medical Problems: (1) Syncope Status: Acute Condition on Discharge: Stable CODE STATUS: Code Status: Full HOME HEALTH: Face to Face: I certify this patient is under my care and that I, had a face to face encounter that meets the physician face to face encounter requirements with this patient on 12/18 Medical Complications: Falls (ankle fractuer) RN For Eval/Treatment: Yes Physical Therapy For: Evalulation/Treatment Occupational Therapy For: Evaluation/Treatment Pt Meets Homebound Status: Poor coordination w/ amb., Unsteady balance w/ amb, POST DISCHARGE ORDERS: Activity Instructions for Disc: No restrictions, Resume previous activity, Activity as tolerated Weight Bearing Status after Di: No restrictions, As tolerated DIET AFTER DISCHARGE: Renal FOLLOW-UP: Follow up with: Primary care Follow Up With: dialysis TREATMENT/EQUIPMENT ORDERS: Adaptive Equipment Issued: Commode (drop arm), Front wheeled walker, Sliding board CERTIFICATION STATEMENT: Certification Statement: Certification Statement: Based on the above finding, I certify that this patient is confined to the home and needs intermittent care home care, physical therapy and/or speech therapy, or continues to need occupational therapy.~ This patient is under my care, and I have initiated the establishment of the plan of care.~ This patient will be followed by myself or a community physician who will periodically review the plan of care. Home Meds Active Scripts Oxycodone Hcl (OXYCODONE HCL IMMED.RELEASE ) 5 Mg Tablet, 5 MG PO PRN Q3HRS PRN for MODERATE-SEVERE PAIN, #30 TAB Prov:CASTLE,NIAL K III DO 12/15/20 Azithromycin (AZITHROMYCIN TABLET) 250 Mg Tablet, 250 MG PO DAILY for uri, #10 TAB Prov:CASTLE,NIAL K III DO 12/15/20 Reported Medications Acetaminophen (ACETAMINOPHEN) 500 Mg Tablet, 2 TAB PO PRN Q6HRS PRN for pain or fever for 15 Days, #60 TAB 0 Refills 12/13/20 Furosemide (FUROSEMIDE) 80 Mg Tablet, 1 TAB PO DAILY for take daily on non- dialysis day, #30 TAB 5 Refills 12/13/20 Calcium Acetate (CALCIUM ACETATE) 667 Mg Tablet, 2 TAB PO TID for REPLACE CALIUM for 30 Days, #180 TAB 0 Refills 12/12/20 Sevelamer Carbonate (RENVELA) 800 Mg Tablet, 3 TAB PO TID for PHOSPHATE BINDER for 30 Days, #270 TAB 0 Refills 12/12/20 Folic Acid/Vitamin B Comp W-C (RADHIKA-PETE TABLET) 0.8 Mg Tablet, 1 TAB PO DAILY for VIT REPLACEMENT for 30 Days, #30 TAB 0 Refills 12/12/20 Aspirin (Children's Aspirin) 81 Mg Tab.chew, 81 MG PO DAILY for heart, TAB.CHEW 02/27/20 Cinacalcet Hcl (SENSIPAR) 30 Mg Tablet, 30 MG PO DAILY for kidneys, TAB 02/27/20 Atorvastatin Calcium (ATORVASTATIN CALCIUM) 10 Mg Tablet, 10 MG PO HS for FOR CHOLESTEROL, #30 TAB 0 Refills On Mondays and Fridays02/27/20 Cholecalciferol (Vitamin D3) (VITAMIN D) 2,000 Unit Capsule, 1000 UNIT PO DAILY for nutritional supplement 1000 units daily 07/07/16 Discontinued Reported Medications Minocycline Hcl (MINOCYCLINE HCL) 100 Mg Capsule, 100 MG PO DAILY for kidney, CAP 02/27/20 TIFFANY PAINTER MD Dec 18, 2020 09:28
--- NOTE | 2020-12-18 09:58 | NUR ---
SS following up with discharge planning. SS reviewed pt chart and discussed with pt RN. Pt is currently on room air. Pt's slide board and drop arm commode delivered this morning. Discharge orders received for home with home healthcare. Pt accepted with [facility], ; fax [phone]. SS phoned and faxed discharge orders to [facility]. SS contacted [facility] in [place], ; fax [phone], and notified of discharge. Pt's RN notified. SS will continue to follow for discharge planning.
--- NOTE | 2020-12-18 10:34 | PDOC3 ---
Discharge Summary Visit Information Date of Admission: Dec 13, 2020 Date of Discharge: Dec 18, 2020 Final Diagnosis Syncope after dialysis, right ankle pain after fall ESRD obese, BMI 43 new trimalleolar fracture right ankle weakess, chronic anemia of ESRD dm2 Problems Medical Problems: (1) Syncope Status: Acute Brief Hospital Course Allergies Allergies Coded Allergies Type Severity Reaction Last Updated Verified Penicillins Allergy Intermediate Rash 02/27/20 Yes Vital Signs Vital Signs Date Time Temp Pulse Resp B/P (MAP) Pulse Ox O2 Delivery O2 Flow Rate FiO2 12/18/20 08:05 Room Air 12/18/20 07:00 97.7 81 20 132/67 (88) 99 97.7 Lab Results Laboratory Tests Test 12/17/20 04:00 White Blood Count 11.4 x10^3/uL (4.0-11.0) Red Blood Count 2.46 x10^6/uL (3.50-5.40) Hemoglobin 8.2 g/dL (12.0-15.5) Hematocrit 25.2 % (36.0-47.0) Mean Corpuscular Volume 103 fL (79-100) Mean Corpuscular Hemoglobin 33 pg (25-35) Mean Corpuscular Hemoglobin Concent 33 g/dL (31-37) Red Cell Distribution Width 12.8 % (11.5-14.5) Platelet Count 262 x10^3/uL (140-400) Sodium Level 139 mmol/L (136-145) Potassium Level 4.3 mmol/L (3.5-5.1) Chloride Level 102 mmol/L (98-107) Carbon Dioxide Level 28 mmol/L (21-32) Anion Gap 9 (6-14) Blood Urea Nitrogen 56 mg/dL (7-20) Creatinine 7.7 mg/dL (0.6-1.0) Estimated GFR (Cockcroft-Gault) 5.3 Glucose Level 83 mg/dL (70-99) Calcium Level 8.9 mg/dL (8.5-10.1) Brief Hospital Course Ms. Argueta is a 65-year-old female who often gets weak and dizzy after dialysis. Today, she went to dialysis, then tried to do some work for [employer]. At the [employer], she had a fall after a syncopal episode. She twisted her ankle and was a trimalleolar fracture. her pain was 10/10. after surg, pain OK, knee pain is chronic s with slide board and drop-arm commode needed, DC to home health Discharge Information Condition at Discharge: Improved Follow Up: Weeks Disposition/Orders: D/C to Home w/ HH Scheduled Aspirin (Children's Aspirin) 81 Mg Tab.chew, 81 MG PO DAILY for heart, (Reported) Entered as Reported by: LEANA CASTILLO on 02/27/201054 Last Action: Continued on 12/13/201718 by KHALIDA JENKINS Atorvastatin Calcium (Atorvastatin Calcium) 10 Mg Tablet, 10 MG PO HS for FOR CHOLESTEROL, #30 Ref 0 (Reported) On Mondays and Fridays Entered as Reported by: LEANA CASTILLO on 02/27/201054 Last Action: Continued on 12/13/201719 by KHALIDA JENKINS Azithromycin (Azithromycin Tablet) 250 Mg Tablet, 250 MG PO DAILY for uri, #10 Prescribed by: SAVANA HOBBS on 12/15/20 1227 Calcium Acetate (Calcium Acetate) 667 Mg Tablet, 2 TAB PO TID for REPLACE CALIUM for 30 Days, #180 Ref 0 (Reported) Entered as Reported by: LUIS ARMANDO WALLACE on 12/12/202229 Last Action: Converted on 12/13/201719 by KHALIDA JENKINS Cholecalciferol (Vitamin D3) (Vitamin D) 2,000 Unit Capsule, 1,000 UNIT PO DAILY for nutritional supplement, (Reported) 1000 units daily Entered as Reported by: MAXIMILIANO CHAWLA on 07/07/16 1544 Last Action: Converted on 12/13/201718 by KHALIDA JENKINS Cinacalcet Hcl (Sensipar) 30 Mg Tablet, 30 MG PO DAILY for kidneys, (Reported) Entered as Reported by: LEANA CASTILLO on 02/27/201054 Last Action: Continued on 12/13/201718 by KHALIDA JENKINS Folic Acid/Vitamin B Comp W-C (Lynsey-Sai Tablet) 0.8 Mg Tablet, 1 TAB PO DAILY for VIT REPLACEMENT for 30 Days, #30 Ref 0 (Reported) Entered as Reported by: LUIS ARMANDO WALLACE on 12/12/202229 Last Taken: UNKNOWN on Unknown Date & Time Last Action: Continued on 12/13/201718 by KHALIDA JENKINS Furosemide (Furosemide) 80 Mg Tablet, 1 TAB PO DAILY for take daily on non- dialysis day, #30 Ref 5 (Reported) Entered as Reported by: KHALIDA JENKINS on 12/13/201714 Last Taken: 80mgnondialysisdays on Unknown Date & Time Last Action: Continued on 12/13/201719 by KHALIDA JENKINS Sevelamer Carbonate (Renvela) 800 Mg Tablet, 3 TAB PO TID for PHOSPHATE BINDER for 30 Days, #270 Ref 0 (Reported) Entered as Reported by: LUIS ARMANDO WALLACE on 12/12/202229 Last Taken: 2 TAB on 12/12/20 0900 Last Action: Continued on 12/13/201718 by KHALIDA JENKINS Scheduled PRN Acetaminophen (Acetaminophen) 500 Mg Tablet, 2 TAB PO PRN Q6HRS PRN for pain or fever for 15 Days, #60 Ref 0 (Reported) Entered as Reported by: KHALIDA JENKINS on 12/13/201714 Last Taken: 1000mg q hrs prn on Unknown Date & Time Last Action: Continued on 12/13/201719 by KHALIDA JENKINS Oxycodone Hcl (Oxycodone Hcl Immed.release ) 5 Mg Tablet, 5 MG PO PRN Q3HRS PRN for MODERATE-SEVERE PAIN, #30 Prescribed by: SAVANA HOBBS on 12/15/20 1227 Discontinued Medications Minocycline Hcl (Minocycline Hcl) 100 Mg Capsule, 100 MG PO DAILY for kidney, (Reported) Entered as Reported by: LEANA CASTILLO on 02/27/20 1055 Last Action: Discontinued on 12/12/202229 by LUIS ARMANDO WALLACE Patient Instructions Patient Instructions > 30 min face to face eval Justicifation of Admission Dx: Justifications for Admission: Justification of Admission Dx: Yes (ankle fracture) TIFFANY PAINTER MD Dec 18, 2020 10:34
--- NOTE | 2020-12-18 10:41 | PDOC ---
Renal-Progress Notes Subjective Notes Notes NO NEW COMPLAINTS History of Present Illness Hx of present illness FEELS WELL Vitals Vitals Vital Signs Date Time Temp Pulse Resp B/P (MAP) Pulse Ox O2 Delivery O2 Flow Rate FiO2 12/18/20 08:05 Room Air 12/18/20 07:00 97.7 81 20 132/67 (88) 99 97.7 Weight Weight [ ] I.O. Intake and Output Intake and Output 12/18/20 07:00 Intake Total 1495 ml Output Total 350 ml Balance 1145 ml Intake Oral 1495 ml Output Urine Total 350 ml # Voids 1 # Bowel Movements 1 Review of Systems Constitutional: yes: alert, oriented Ears/Nose/Throat: Yes: no symptom reported Eyes: Yes: no symptom reported Pulmonary: Yes no symptom reported Cardiovascular: Yes no symptom reported Gastrointestional: Yes: no symptom reported Genitourinary: Yes: no symptom reported Musculoskeletal: Yes: no symptom reported Skin: Yes no symptom reported Psychiatric/Neurological: Yes: no symptom reported Physical Exam General Appearance: no apparent distress Skin: warm Respiratory: bilateral CTA Heart: S1S2 Abdomen: soft, bowel sounds present Genitourinary: bladder flat Extremities: pulses present Neurology: alert Assessment Assessment IMP RIGHT TRIMALLEOLAR FX-SURGICAL REPAIR ANEMIA DM II HTN ESRD-TTS PLAN HD TOMORROW AT [facility] D/C PLANS NOTED WILL FOLLOW GALDINO URBANO MD Dec 18, 2020 10:41
[2020-12-18 10:42] VITALS: BP 123/69
[2020-12-18] MEDS ORDERED: AZIT250T6 PO (11:18)
[2020-12-18] MEDS ORDERED: OXYC5TAB4 PO (11:18)
[2020-12-18] MEDS: oxyCODONE IR 5 MG TABLET PO PRN (11:31)
--- NOTE | 2020-12-18 11:35 | NUR ---
Discharge instructions given with prescriptions sent via electronic to pharmacy. Answered questions and concerns. Verbalized understanding. Pain med given prior to discharge. Escorted out by PT in a w/c accompanied spouse.
--- NOTE | 2020-12-22 19:08 | OP ---
DATE OF SURGERY: 12/13/2020 PREPROCEDURE DIAGNOSIS: Right trimalleolar ankle fracture. POSTPROCEDURE DIAGNOSIS: Right trimalleolar ankle fracture. PROCEDURE: Open reduction internal fixation of right trimalleolar ankle fracture. ANESTHESIA: General. DESCRIPTION OF PROCEDURE: The patient was brought back to the operating room. Anesthesia was begun. Once satisfactory anesthesia was achieved, a nonsterile tourniquet was placed on the operative right lower extremity. The leg was then prepped and draped in the usual sterile fashion. After prepping and draping and once all members of the surgical team were present, a time-out was called and the appropriate patient, site and procedure as well as administration of preprocedure antibiotics was confirmed. Leg was elevated, exsanguinated and tourniquet inflated to 250 mmHg. Standard lateral incision was made. This was carried sharply through the skin. Blunt dissection was performed down to the level of the fibular fracture. The length was pulled through the fracture site, which was then crossclamped. Reduction was confirmed under fluoroscopic imaging. A lag screw by technique was placed in an anterior to posterior direction. Pointed reduction clamp was removed and further fracture reduction was maintained. A 1/3 semitubular plate was chosen and contoured to fit the distal fibula. It was fixed proximally with three cortical screws, which were drilled and placed sequentially. Reduction of the plate to the bone was held manually and 2 distal locking screws were placed under fluoroscopic guidance. Attention was then turned to the medial side. A second incision was made with a clean blade. This was carried sharply through the skin. Blunt dissection was performed down to the level of the fracture site, which was booked open and all interposed soft tissue was removed. A 2.5 mm drill bit was used to make a hole proximal to the fracture site. A pointed reduction clamp was used to reduce the fracture. A 2.5 mm drill bit and a 60 mm 3.5 mm cortical screw was drilled in place with excellent purchase. A second screw was placed posterior to the first screw. Clamp was removed and fracture reduction was maintained. Utilizing a pointed reduction clamp, the syndesmosis was passed under fluoroscopic imaging. An external rotation stress view was also obtained, which revealed maintenance of the syndesmosis. Wounds were thoroughly irrigated. 0 Vicryl was used for deep closure, 2-0 Vicryl for the dermal layer and carin for the skin. Xeroform, 4 x 4's, Webril and a well-padded posterior slab splint with a stirrup were placed as final dressings. The patient tolerated the procedure well. There were no complications. COMPLICATIONS: None. ESTIMATED BLOOD LOSS: 25 mL DISPOSITION: The patient will be nonweightbearing for an anticipated period of 6 weeks. Plan for followup in 2 weeks for recheck with x-ray. DWAYNE DR: Kaleigh TID: [id number]
== END 2020-12-18 11:35 | disposition home health service (06) | DRG 492 ==
LOC: ER 12:44 → ED HOLD 18:28 → 2 NORTH 20:37 → OBSVTOIN 12-13 22:35
PROVIDERS: ADMIT Internal Medicine; ATTEND Internal Medicine
PROC: 0QSJ04Z Reposition Right Fibula with Internal Fixation Device, Open Approach (ICD-10-PCS; principal; 2020-12-13 08:00)
PROC: 5A1D70Z Performance of Urinary Filtration, Intermittent, Less than 6 Hours Per Day (ICD-10-PCS; 2020-12-15)
PROC: 5A1D70Z Performance of Urinary Filtration, Intermittent, Less than 6 Hours Per Day (ICD-10-PCS; 2020-12-17)
DX: S82.851A Displaced trimalleolar fracture of right lower leg, initial encounter for closed fracture (principal); N18.6 End stage renal disease; I12.0 Hypertensive chronic kidney disease with stage 5 chronic kidney disease or end stage renal disease; Z68.41 Body mass index [BMI] 40.0-44.9, adult; E11.22 Type 2 diabetes mellitus with diabetic chronic kidney disease; Z20.822 Contact with and (suspected) exposure to COVID-19; E78.5 Hyperlipidemia, unspecified; D63.1 Anemia in chronic kidney disease; E66.9 Obesity, unspecified; W18.30XA Fall on same level, unspecified, initial encounter; Y93.89 Activity, other specified; Y92.89 Other specified places as the place of occurrence of the external cause; Y99.8 Other external cause status; Z99.2 Dependence on renal dialysis; Z88.0 Allergy status to penicillin; Z83.3 Family history of diabetes mellitus; Z82.3 Family history of stroke; Z82.49 Family history of ischemic heart disease and other diseases of the circulatory system; G90.8 Other disorders of autonomic nervous system
CPT/HCPCS: 36415; 71045; 73610; 73700; 76000; 80048; 80053; 82962; 83690; 83735; 84484; 85014; 85018; 85025; 85027; 86706; 87340; 87426; 93005; 96361; 96374; 96375; 96376; 99285; A4930; A6253; A6402; A6449; A6450; A6455; C1713; G0378; G0379; J0330; J0690; J0882; J1100; J2270; J2405; J2704; J3010; J3490; J7030; U0003; U0005; 97110-GP; 97530-GO; 97530-GP; 97535-GO

== ENCOUNTER → 2021-04-19 | Outpatient (CLI) | payer MEDICARE ==
[~2021-04-19] MED LIST changes: +ACET500T68 PO; +AZIT250T6 PO; +CALC667T4 PO; +FOLI0.8T21 PO; +FURO80TA3 PO; +OXYC5TAB4 PO; +SEVE800T9 PO
--- NOTE | 2021-04-19 16:21 | KCIC ---
Bilateral digital screening mammograms: Reason for examination: Routine screening. Comparison is made to previous study dated 02/05/2020. Interpretation was made with the benefit of CAD. Findings: Breast density: Category A. The breasts are almost entirely fatty. There are no suspicious masses, malignant appearing calcifications or architectural distortions. Impression: No evidence of malignancy. BI-RADS Category 1: Negative. Recommend routine screening. This patient's information has been entered into a reminder system for the patient to be notified wit h the results of her examination and a target date for the next mammogram. Electronically signed by: Yoselin Dorsey MD (04/19/2021 4:18 PM) [id number]
== END ==
LOC: KCIC MAMMO 08:03
PROVIDERS: ATTEND Family Medicine
DX: Z12.31 Encounter for screening mammogram for malignant neoplasm of breast (principal)
CPT/HCPCS: 77067

== ENCOUNTER 2021-06-03 14:17 | Observation (INO) | payer MEDICARE ==
[~2021-06-03] VITALS: Ht 165.1 cm; Wt 106.9 kg
[~2021-06-03 14:17] MED LIST changes: +POTA-121 PO; -POTA20TA4 PO
--- NOTE | 2021-06-03 14:41 | ED.ADGEN ---
Past Medical History Past Medical History: Hypertension, Renal Failure Past Surgical History: Cholecystectomy, Hysterectomy, Knee Replacement Additional Past Surgical Histo: L ARM FISTULA, BX KNEE Smoking Status: Never Smoker Alcohol Use: None General Adult EDM: Chief Complaint: DYSPNEA/RESPIRATORY DISTRESS HPI: HPI: Patient is a 65-year-old female who arrives ambulatory to the emergency departm ent complaining of ongoing chest tightness as well as shortness of air. Patient recently completed dialysis prior to arrival. Patient reports has been feeling this way now for 1 week. She was admitted and evaluated at another hospital on last week and discharged on Monday for dialysis. Patient states she has continued to feel this way even after being discharged. Patient states she missed her Monday dialysis appointment because she has been feeling poorly. Patient also states that she has had low-grade fevers during this time as well. Despite this, she denies any known sick contacts. She further denies any radiation of her pain and states she has had the coronavirus vaccines. She further denies any nausea, vomiting or diarrhea. She is awake, alert and uncomfortable appearing. Review of Systems: Review of Systems: Constitutional: Denies fever or chills. [] Eyes: Denies change in visual acuity. [] HENT: Denies nasal congestion or sore throat. [] Respiratory: Reports shortness of air. Denies cough. [] Cardiovascular: Reports chest pain. Denies edema. [] GI: Denies abdominal pain, nausea, vomiting, bloody stools or diarrhea. [] : Denies dysuria. [] Musculoskeletal: Denies back pain or joint pain. [] Integument: Denies rash. [] Neurologic: Denies headache, focal weakness or sensory changes. [] Endocrine: Denies polyuria or polydipsia. [] Lymphatic: Denies swollen glands. [] Psychiatric: Denies depression or anxiety. [] Allergies: Allergies: Allergies Coded Allergies Type Severity Reaction Last Updated Verified Penicillins Allergy Intermediate Rash 06/03/21 Yes Physical Exam: PE: Constitutional: Uncomfortable appearing. Well developed, well nourished, non- toxic appearance. [] HENT: Normocephalic, atraumatic, bilateral external ears normal, oropharynx moist, no oral exudates, nose normal. [] Eyes: PERRLA, EOMI, conjunctiva normal, no discharge. [] Neck: Normal range of motion, no tenderness, supple, no stridor. [] Cardiovascular:Heart rate regular rhythm, no murmur [] Lungs & Thorax: Diminished breath sounds bilaterally. [] Abdomen: Bowel sounds normal, soft, no tenderness, no masses, no pulsatile masses. [] Skin: Warm, dry, no erythema, no rash. [] Back: No tenderness, no CVA tenderness. [] Extremities: No tenderness, no cyanosis, no clubbing, ROM intact, no edema. [] Neurologic: Alert and oriented X 3, normal motor function, normal sensory function, no focal deficits noted. [] Psychologic: Affect normal, judgement normal, mood normal. [] Current Patient Data: Labs: Laboratory Tests Test 06/03/21 15:20 06/03/21 15:55 SARS-CoV-2 Antigen (Rapid) Negative (NEGATIVE) White Blood Count 10.6 x10^3/uL (4.0-11.0) Red Blood Count 3.21 x10^6/uL (3.50-5.40) L Hemoglobin 11.0 g/dL (12.0-15.5) L Hematocrit 33.0 % (36.0-47.0) L Mean Corpuscular Volume 103 fL (79-100) H Mean Corpuscular Hemoglobin 34 pg (25-35) Mean Corpuscular Hemoglobin Concent 33 g/dL (31-37) Red Cell Distribution Width 13.6 % (11.5-14.5) Platelet Count 378 x10^3/uL (140-400) Neutrophils (%) (Auto) 73 % (31-73) Lymphocytes (%) (Auto) 12 % (24-48) L Monocytes (%) (Auto) 13 % (0-9) H Eosinophils (%) (Auto) 1 % (0-3) Basophils (%) (Auto) 0 % (0-3) Neutrophils # (Auto) 7.8 x10^3/uL (1.8-7.7) H Lymphocytes # (Auto) 1.3 x10^3/uL (1.0-4.8) Monocytes # (Auto) 1.4 x10^3/uL (0.0-1.1) H Eosinophils # (Auto) 0.1 x10^3/uL (0.0-0.7) Basophils # (Auto) 0.0 x10^3/uL (0.0-0.2) Sodium Level 134 mmol/L (136-145) L Potassium Level 4.3 mmol/L (3.5-5.1) Chloride Level 96 mmol/L (98-107) L Carbon Dioxide Level 32 mmol/L (21-32) Anion Gap 6 (6-14) Blood Urea Nitrogen 41 mg/dL (7-20) H Creatinine 5.8 mg/dL (0.6-1.0) H Estimated GFR (Cockcroft-Gault) 7.4 BUN/Creatinine Ratio 7 (6-20) Glucose Level 90 mg/dL (70-99) Calcium Level 9.0 mg/dL (8.5-10.1) Total Bilirubin 0.5 mg/dL (0.2-1.0) Aspartate Amino Transferase (AST) 19 U/L (15-37) Alanine Aminotransferase (ALT) 46 U/L (14-59) Alkaline Phosphatase 129 U/L (46-116) H Creatine Kinase 18 U/L (26-192) L Creatine Kinase MB (Mass) < 0.5 ng/mL (0.0-3.6) Creatine Kinase MB Relative Index % (0-4) Troponin I Quantitative < 0.017 ng/mL (0.000-0.055) BZ-Ibh-M-Type Natriuretic Peptide 5650 pg/mL (0-124) H Total Protein 7.6 g/dL (6.4-8.2) Albumin 2.8 g/dL (3.4-5.0) L Albumin/Globulin Ratio 0.6 (1.0-1.7) L Laboratory Tests 06/03/21 15:55 Laboratory Tests 06/03/21 15:55 Vital Signs: Vital Signs Date Time Temp Pulse Resp B/P (MAP) Pulse Ox O2 Delivery O2 Flow Rate FiO2 06/03/21 14:48 97.7 20 196/89 (124) 100 Room Air 97.7 EKG: EKG: [] EKG was obtained at 1442 hrs. and reveals a sinus tachycardia with a ventricular to 108 bpm. There does appear to be T wave inversion of the anterior leads without evidence for STEMI otherwise. Heart Score: C/O Chest Pain: Yes HEART Score for Chest Pain: HEART Score for Chest Pain Response (Comments) Value History Moderately Suspicious 1 Age >45 - < 65 1 Risk Factors 1 or 2 Risk Factors 1 Total 3 Risk Factors: Risk Factors: DM, Current or recent (<one month) smoker, HTN, HLP, family history of CAD, obesity. Risk Scores: Score 0 - 3: 2.5% MACE over next 6 weeks - Discharge Home Score 4 - 6: 20.3% MACE over next 6 weeks - Admit for Clinical Observation Score 7 - 10: 72.7% MACE over next 6 weeks - Early Invasive Strategies Radiology/Procedures: Radiology/Procedures: [] Impression: [facility] [address] [place] [address] IMAGING REPORT Signed PATIENT: JUVE ALBARADOOUNT: [id number] : 1955 LOCATION: ER AGE: 65 SEX: F EXAM STATUS: REG ER ORD. PHYSICIAN: MICHA MARTIN DO REASON: pain PROCEDURE: PORTABLE CHEST 1V AP chest. HISTORY: Pain AP view was taken of the chest. Cardiac silhouette is enlarged from an enlarged heart or pericardial effusion. Been a change compared to the study from November 2020. There is left retrocardiac atelectasis or infiltrate. There is no definite pleural effusion. IMPRESSION: 1. Enlarged heart or pericardial effusion. 2. Left basilar atelectasis or infiltrate. Electronically signed by: Gopi Cummings MD (06/03/2021 3:25 PM) [facility] DICTATED and SIGNED BY: GOPI CUMMINGS MD DATE: 06/03/21 [id number] 0 Course & Med Decision Making: Course & Med Decision Making Pertinent Labs and Imaging studies reviewed. (See chart for details) [] Dragon Disclaimer: Dragon Disclaimer: This electronic medical record was generated, in whole or in part, using a voice recognition dictation system. Departure Departure Impression: Primary Impression: Chest pain Additional Impressions: Dyspnea Person under investigation for COVID-19 End stage renal disease Disposition: ADMITTED INPATIENT Admitting Physician: REUBEN Condition: STABLE Referrals: GOPI GROVES MD (PCP) Problem Qualifiers MICHA MARTIN DO Jun 03, 2021 14:41
--- NOTE | 2021-06-03 15:27 | RAD ---
AP chest. HISTORY: Pain AP view was taken of the chest. Cardiac silhouette is enlarged from an enlarged heart or pericardial effusion. Been a change compared to the study from November 2020. There is left retrocardiac atelectasis or infiltrate. There is no definite pleural effusion. IMPRESSION: 1. Enlarged heart or pericardial effusion. 2. Left basilar atelectasis or infiltrate. Electronically signed by: Gopi Cummings MD (06/03/2021 3:25 PM) [facility]
[2021-06-03 16:04] LABS: BASO % 0 % (0-3); EOS # 0.1 x10^3/uL (0.0-0.7); EOS % 1 % (0-3); LYMPH # 1.3 x10^3/uL (1.0-4.8); LYMPH % 12 % (24-48); MEAN CORPUSCULAR HEMOGLOBIN 34 pg (25-35); MEAN CORPUSCULAR HGB CONC 33 g/dL (31-37); MEAN CORPUSCULAR VOLUME 103 fL (79-100); MONO # 1.4 x10^3/uL (0.0-1.1); MONO % 13 % (0-9); NEUT # 7.8 x10^3/uL (1.8-7.7); NEUT % 73 % (31-73); PLATELET COUNT 378 x10^3/uL (140-400); RED BLOOD COUNT 3.21 x10^6/uL (3.50-5.40); RED CELL DISTRIBUTION WIDTH 13.6 % (11.5-14.5); WHITE BLOOD COUNT 10.6 x10^3/uL (4.0-11.0)
[2021-06-03 16:08] LABS: CREATININE 5.8 mg/dL (0.6-1.0); GFR 7.4; POTASSIUM 4.3 mmol/L (3.5-5.1)
[2021-06-03 16:15] LABS: ALBUMIN 2.8 g/dL (3.4-5.0); ALBUMIN/GLOBULIN RATIO 0.6 (1.0-1.7); TOTAL BILIRUBIN 0.5 mg/dL (0.2-1.0); TOTAL PROTEIN 7.6 g/dL (6.4-8.2)
[2021-06-03 16:35] LABS: CREATINE KINASE 18 U/L (26-192)
[2021-06-03] MEDS ORDERED: ACETAMINOPHEN 325 MG TABLET. PO PRN (17:00)
[2021-06-03] MEDS ORDERED: ONDANSETRON PF 4 MG/2 ML VIAL. IVP PRN (17:00)
[2021-06-03 19:00] VITALS: BP 144/78
[2021-06-03] MEDS ORDERED: oxyCODONE IR 5 MG TABLET PO PRN (19:45)
--- NOTE | 2021-06-03 19:59 | PDOC1 ---
History and Physical Date of Admission Date of Admission DATE: 06/03/21 TIME: 19:44 Source Source: Chart review, Patient History of Present Illness History of Present Illness Ms. Argueta, is a 65-year-old female admit for a return of chest pain from last week, she has chest tightness as well as shortness of air and came from dialysis. She was at [facility] last week for chest pain, DC on . has been compliant with dialysis her father had CAD she reports not having a prior stress test or intervention. , she denies any known sick contacts. he is s/p vaccinated. She is awake, alert and uncomfortable appearing. Past Medical History Past Medical History CARMEN Cardiovascular: HTN, Hyperlipidemia Pulmonary: No pertinent hx, Other Endocrine: Diabetes, Hyperparathyroidism Family History Family History: Diabetes, Heart Disease, High Cholestrol, Kidney Disease, Stroke Family History: Other (father of sepsis) Social History Smoke: No ALCOHOL: none Drugs: None Current Problem List Problem List Problems Medical Problems: (1) Chest pain Status: Acute (2) Dyspnea Status: Acute (3) End stage renal disease Status: Acute (4) Person under investigation for COVID-19 Status: Acute Current Medications Current Medications Current Medications Ondansetron HCl (Zofran) 4 mg PRN Q8HRS PRN IVP NAUSEA/VOMITING; Start 06/03/21 at 17:00; Stop 06/04/21 at 16:59 Acetaminophen (Tylenol) 650 mg PRN Q4HRS PRN PO FEVER > 100.3'F; Start 06/03/21 at 17:00; Stop 06/04/21 at 16:59 Active Scripts Active Oxycodone Hcl Immed.release (Oxycodone Hcl) 5 Mg Tablet 5 Mg PO PRN Q3HRS PRN Azithromycin Tablet (Azithromycin) 250 Mg Tablet 250 Mg PO DAILY Reported Acetaminophen 500 Mg Tablet 2 Tab PO PRN Q6HRS PRN 15 Days Furosemide 80 Mg Tablet 1 Tab PO DAILY Calcium Acetate 667 Mg Tablet 2 Tab PO TID 30 Days Renvela (Sevelamer Carbonate) 800 Mg Tablet 3 Tab PO TID 30 Days Lynsey-Sai Tablet (Folic Acid/Vitamin B Comp W-C) 0.8 Mg Tablet 1 Tab PO DAILY 30 Days Children's Aspirin (Aspirin) 81 Mg Tab.chew 81 Mg PO DAILY Sensipar (Cinacalcet Hcl) 30 Mg Tablet 30 Mg PO DAILY Atorvastatin Calcium 10 Mg Tablet 10 Mg PO HS On Mondays and Fridays Vitamin D (Cholecalciferol (Vitamin D3)) 2,000 Unit Capsule 1,000 Unit PO DAILY 1000 units daily Allergies Allergies: Coded Allergies: Penicillins (Verified Allergy, Intermediate, Rash, 06/03/21) ROS General: No: Chills, Night Sweats, Fatigue, Malaise, Appetite, Other PSYCHOLOGICAL ROS: No: Anxiety, Behavioral Disorder, Concentration difficultie, Decreased libido, Depression, Disorientation, Hallucinations, Hostility, Irritablity, Memory difficulties, Mood Swings, Obsessive thoughts, Physical abuse, Sexual abuse, Sleep disturbances, Suicidal ideation, Other Eyes: No Blurry vision, No Decreased vision, No Double vision, No Dry eyes, No Excessive tearing, No Eye Pain, No Itchy Eyes, No Loss of vision, No Photophobia, No Scotomata, No Uses contacts, No Uses glasses, No Other HEENT: No: Heacaches, Visual Changes, Hearing change, Nasal congestion, Nasal discharge, Oral lesions, Sinus pain, Sore Throat, Epistaxis, Sneezing, Snoring, Tinnitus, Vertigo, Vocal changes, Other Respiratory: YES: Shortness of breath, SOB with excertion; No: Hemoptysis, Orthopnea, Pleuritic Pain, Sputum Changes, Stridor, Tachypnea, Wheezing, Other Cardiovascular: yes Chest Pain; No Palpitations, No Orthopnea, No Paroxysmal Noc. Dyspnea, No Edema, No Lt Headedness, No Other Gastrointestinal: No Nausea, No Vomiting, No Abdominal Pain, No Diarrhea, No Constipation, No Melena, No Hematochezia, No Other Genitourinary: No Dysuria, No Frequency, No Incontinence, No Hematuria, No Retention, No Discharge, No Urgency, No Pain, No Flank Pain, No Other, No , No , No , No , No , No , No Neurological: No Behavorial Changes, No Bowel/Bladder ControlChng, No Confusion, No Dizziness, No Gait Disturbance, No Headaches, No Impaired Coord/balance, No Memory Loss, No Numbness/Tingling, No Seizures, No Speech Problems, No Tremors, No Visual Changes, No Weakness, No Other Skin: Yes Dry Skin Physical Exam General: Alert, Cooperative, No acute distress HEENT: Atraumatic, PERRLA, Mucous membr. moist/pink Heart: S1S2, RRR, no gallops, no murmurs Abdomen: Normal bowel sounds, Soft Extremities: No clubbing, No edema Skin: No breakdown, No significant lesion Neuro: Normal speech, Sensation intact Psych/Mental Status: Mental status NL Vitals Vitals Vital Signs Date Time Temp Pulse Resp B/P (MAP) Pulse Ox O2 Delivery O2 Flow Rate FiO2 06/03/21 16:37 98 16 136/67 (90) 98 Room Air 06/03/21 14:48 97.7 97.7 Labs Labs Laboratory Tests Test 06/03/21 15:20 06/03/21 15:55 SARS-CoV-2 Antigen (Rapid) Negative (NEGATIVE) White Blood Count 10.6 x10^3/uL (4.0-11.0) Red Blood Count 3.21 x10^6/uL (3.50-5.40) Hemoglobin 11.0 g/dL (12.0-15.5) Hematocrit 33.0 % (36.0-47.0) Mean Corpuscular Volume 103 fL (79-100) Mean Corpuscular Hemoglobin 34 pg (25-35) Mean Corpuscular Hemoglobin Concent 33 g/dL (31-37) Red Cell Distribution Width 13.6 % (11.5-14.5) Platelet Count 378 x10^3/uL (140-400) Neutrophils (%) (Auto) 73 % (31-73) Lymphocytes (%) (Auto) 12 % (24-48) Monocytes (%) (Auto) 13 % (0-9) Eosinophils (%) (Auto) 1 % (0-3) Basophils (%) (Auto) 0 % (0-3) Neutrophils # (Auto) 7.8 x10^3/uL (1.8-7.7) Lymphocytes # (Auto) 1.3 x10^3/uL (1.0-4.8) Monocytes # (Auto) 1.4 x10^3/uL (0.0-1.1) Eosinophils # (Auto) 0.1 x10^3/uL (0.0-0.7) Basophils # (Auto) 0.0 x10^3/uL (0.0-0.2) Sodium Level 134 mmol/L (136-145) Potassium Level 4.3 mmol/L (3.5-5.1) Chloride Level 96 mmol/L (98-107) Carbon Dioxide Level 32 mmol/L (21-32) Anion Gap 6 (6-14) Blood Urea Nitrogen 41 mg/dL (7-20) Creatinine 5.8 mg/dL (0.6-1.0) Estimated GFR (Cockcroft-Gault) 7.4 BUN/Creatinine Ratio 7 (6-20) Glucose Level 90 mg/dL (70-99) Calcium Level 9.0 mg/dL (8.5-10.1) Total Bilirubin 0.5 mg/dL (0.2-1.0) Aspartate Amino Transf (AST/SGOT) 19 U/L (15-37) Alanine Aminotransferase (ALT/SGPT) 46 U/L (14-59) Alkaline Phosphatase 129 U/L (46-116) Creatine Kinase 18 U/L (26-192) Creatine Kinase MB (Mass) < 0.5 ng/mL (0.0-3.6) Creatine Kinase MB Relative Index % (0-4) Troponin I Quantitative < 0.017 ng/mL (0.000-0.055) AY-Jzi-S-Type Natriuretic Peptide 5650 pg/mL (0-124) Total Protein 7.6 g/dL (6.4-8.2) Albumin 2.8 g/dL (3.4-5.0) Albumin/Globulin Ratio 0.6 (1.0-1.7) Laboratory Tests Test 06/03/21 15:20 06/03/21 15:55 SARS-CoV-2 Antigen (Rapid) Negative (NEGATIVE) White Blood Count 10.6 x10^3/uL (4.0-11.0) Red Blood Count 3.21 x10^6/uL (3.50-5.40) Hemoglobin 11.0 g/dL (12.0-15.5) Hematocrit 33.0 % (36.0-47.0) Mean Corpuscular Volume 103 fL (79-100) Mean Corpuscular Hemoglobin 34 pg (25-35) Mean Corpuscular Hemoglobin Concent 33 g/dL (31-37) Red Cell Distribution Width 13.6 % (11.5-14.5) Platelet Count 378 x10^3/uL (140-400) Neutrophils (%) (Auto) 73 % (31-73) Lymphocytes (%) (Auto) 12 % (24-48) Monocytes (%) (Auto) 13 % (0-9) Eosinophils (%) (Auto) 1 % (0-3) Basophils (%) (Auto) 0 % (0-3) Neutrophils # (Auto) 7.8 x10^3/uL (1.8-7.7) Lymphocytes # (Auto) 1.3 x10^3/uL (1.0-4.8) Monocytes # (Auto) 1.4 x10^3/uL (0.0-1.1) Eosinophils # (Auto) 0.1 x10^3/uL (0.0-0.7) Basophils # (Auto) 0.0 x10^3/uL (0.0-0.2) Sodium Level 134 mmol/L (136-145) Potassium Level 4.3 mmol/L (3.5-5.1) Chloride Level 96 mmol/L (98-107) Carbon Dioxide Level 32 mmol/L (21-32) Anion Gap 6 (6-14) Blood Urea Nitrogen 41 mg/dL (7-20) Creatinine 5.8 mg/dL (0.6-1.0) Estimated GFR (Cockcroft-Gault) 7.4 BUN/Creatinine Ratio 7 (6-20) Glucose Level 90 mg/dL (70-99) Calcium Level 9.0 mg/dL (8.5-10.1) Total Bilirubin 0.5 mg/dL (0.2-1.0) Aspartate Amino Transf (AST/SGOT) 19 U/L (15-37) Alanine Aminotransferase (ALT/SGPT) 46 U/L (14-59) Alkaline Phosphatase 129 U/L (46-116) Creatine Kinase 18 U/L (26-192) Creatine Kinase MB (Mass) < 0.5 ng/mL (0.0-3.6) Creatine Kinase MB Relative Index % (0-4) Troponin I Quantitative < 0.017 ng/mL (0.000-0.055) QX-Nzc-I-Type Natriuretic Peptide 5650 pg/mL (0-124) Total Protein 7.6 g/dL (6.4-8.2) Albumin 2.8 g/dL (3.4-5.0) Albumin/Globulin Ratio 0.6 (1.0-1.7) VTE Prophylaxis Ordered VTE Prophylaxis Devices: No VTE Pharmacological Prophylaxi: Yes Assessment/Plan Assessment/Plan chest pain, angina, r/o ACS, CXR ok, CHF, cardiomegaly ESRD chronic diastolic CHF obese, BMI 39 CARMEN, her will bring her bipap consutl CV and renal Justifications for Admission Other Justification TIFFANY PAINTER MD Jun 03, 2021 19:59
[2021-06-03] MEDS ORDERED: ATORVASTATIN CALCIUM 10 MG TABLET. PO SCH (21:00)
[2021-06-03] MEDS: HEPARIN for SUB-Q USE 5,000 UNIT/ML VIAL. SQ SCH (21:20)
[2021-06-03] MEDS: SEVELAMER CARBONATE 800 MG TABLET. PO SCH (21:21)
[2021-06-03] MEDS: CALCIUM ACETATE 667 MG CAPSULE PO SCH (21:21)
[2021-06-03 23:49] VITALS: BP 153/78
[2021-06-04 03:50] VITALS: BP 137/77
[2021-06-04 07:00] VITALS: BP 116/73
--- NOTE | 2021-06-04 08:56 | PDOC2 ---
ANGELICA GREEN CRIMINOLOGY TEACHER 06/04/21 0856: CARDIAC CONSULT DATE OF CONSULT Date of Consult DATE: 06/04/21 TIME: 08:54 REASON FOR CONSULT Reason for Consult: Chest pain REFERRING PHYSICIAN Referring Physician: Bernardo SOURCE Source: Chart review, Patient HISTORY OF PRESENT ILLNESS HISTORY OF PRESENT ILLNESS This is a pleasant 65 yo female admitted for complains of chest pian. Reports that she has been having intermittent palpitations. Her chest pain is left sharp initially armpit to shoulder then midchest. She did missed her HD last Monday since she was not feeling well. She finally came in because she felt nauseated and had palpitations and some SOA. Denies any exertional CP and STEVENSON. No prior hx of CAD. She had a stress georgette about a yr ago and was told that this was OK. She is a candidate for renal transplant. No recent falls or injury. No covid-19 s/s and has been vaccinated. No fever or chills. No vomiting. PAST MEDICAL HISTORY Cardiovascular: HTN, Hyperlipidemia Pulmonary: Other (CARMEN) CENTRAL NERVOUS SYSTEM: Other (No pertinent history) GI: No pertinent hx Heme/Onc: No pertinent hx Hepatobiliary: No pertinent hx Psych: No pertinent hx Musculoskeletal: Osteoarthritis Rheumatologic: No pertinent hx Infectious disease: No pertinent hx ENT: No pertinent hx Renal/: Chronic renal failure Dermatology: No pertinent hx PAST SURGICAL HISTORY Past Surgical History: Arthroscopy (right ankle ORIF), Cholecystectomy, Total knee replacement (bilateral), Hysterectomy, Other (LAV HD fistula) FAMILY HISTORY Family History: Hypertension SOCIAL HISTORY Smoke: No ALCOHOL: none Drugs: None Lives: with Family (spouse) CURRENT MEDICATIONS CURRENT MEDICATIONS Current Medications Medications (Trade) Dose Ordered Sig/Indy Route PRN Reason Start Time Stop Time Status Last Admin Dose Admin Heparin Sodium (Porcine) (Heparin Sodium) 5,000 unit Q12HR SQ 06/03/21 21:00 06/03/21 21:20 ALLERGIES ALLERGIES: Coded Allergies: Penicillins (Verified Allergy, Intermediate, Rash, 06/03/21) ROS Review of System 14 point ROS evaluated with pertinent positives noted per HPI PHYSICAL EXAM General: Alert, Oriented X3, Cooperative, No acute distress HEENT: Atraumatic, Mucous membr. moist/pink Lungs: Clear to auscultation, Normal air movement Heart: Regular rate (SR/ST), Normal S1, Normal S2, No murmurs Abdomen: Soft, No tenderness Extremities: No cyanosis, No edema Skin: No breakdown, No significant lesion Neuro: Normal speech, Sensation intact Psych/Mental Status: Mental status NL, Mood NL MUSCULOSKELETAL: Osteoarthritic changes both hands VITALS/I&O VITALS/I&O: Vital Signs Date Time Temp Pulse Resp B/P (MAP) Pulse Ox O2 Delivery O2 Flow Rate FiO2 06/04/21 03:50 98.6 107 19 137/77 (97) 94 98.6 06/03/21 20:20 Room Air I & O 06/03/21 06/03/21 06/04/21 15:00 23:00 07:00 Intake Total 200 ml 0 ml Balance 200 ml 0 ml LABS Lab: Laboratory Tests Test 06/03/21 15:20 06/03/21 15:55 SARS-CoV-2 Antigen (Rapid) Negative (NEGATIVE) White Blood Count 10.6 x10^3/uL (4.0-11.0) Red Blood Count 3.21 x10^6/uL (3.50-5.40) L Hemoglobin 11.0 g/dL (12.0-15.5) L Hematocrit 33.0 % (36.0-47.0) L Mean Corpuscular Volume 103 fL (79-100) H Mean Corpuscular Hemoglobin 34 pg (25-35) Mean Corpuscular Hemoglobin Concent 33 g/dL (31-37) Red Cell Distribution Width 13.6 % (11.5-14.5) Platelet Count 378 x10^3/uL (140-400) Neutrophils (%) (Auto) 73 % (31-73) Lymphocytes (%) (Auto) 12 % (24-48) L Monocytes (%) (Auto) 13 % (0-9) H Eosinophils (%) (Auto) 1 % (0-3) Basophils (%) (Auto) 0 % (0-3) Neutrophils # (Auto) 7.8 x10^3/uL (1.8-7.7) H Lymphocytes # (Auto) 1.3 x10^3/uL (1.0-4.8) Monocytes # (Auto) 1.4 x10^3/uL (0.0-1.1) H Eosinophils # (Auto) 0.1 x10^3/uL (0.0-0.7) Basophils # (Auto) 0.0 x10^3/uL (0.0-0.2) Sodium Level 134 mmol/L (136-145) L Potassium Level 4.3 mmol/L (3.5-5.1) Chloride Level 96 mmol/L (98-107) L Carbon Dioxide Level 32 mmol/L (21-32) Anion Gap 6 (6-14) Blood Urea Nitrogen 41 mg/dL (7-20) H Creatinine 5.8 mg/dL (0.6-1.0) H Estimated GFR (Cockcroft-Gault) 7.4 BUN/Creatinine Ratio 7 (6-20) Glucose Level 90 mg/dL (70-99) Calcium Level 9.0 mg/dL (8.5-10.1) Total Bilirubin 0.5 mg/dL (0.2-1.0) Aspartate Amino Transferase (AST) 19 U/L (15-37) Alanine Aminotransferase (ALT) 46 U/L (14-59) Alkaline Phosphatase 129 U/L (46-116) H Creatine Kinase 18 U/L (26-192) L Creatine Kinase MB (Mass) < 0.5 ng/mL (0.0-3.6) Creatine Kinase MB Relative Index % (0-4) Troponin I Quantitative < 0.017 ng/mL (0.000-0.055) SZ-Fmf-B-Type Natriuretic Peptide 5650 pg/mL (0-124) H Total Protein 7.6 g/dL (6.4-8.2) Albumin 2.8 g/dL (3.4-5.0) L Albumin/Globulin Ratio 0.6 (1.0-1.7) L Laboratory Tests 06/03/21 15:55 Laboratory Tests 06/03/21 15:55 ASSESSMENT/PLAN ASSESSMENT/PLAN 1. Atypical chest pain 2. HTN urgency 3. ESRD 4. HLP 5. CARMEN: uses CPAP Recommendations 1. TTE today 2. Suspect from high BP. Consider for outpt ischemic evaluation if her CP recurs. Last stress test reported over a yr ago, none noted at [facility] 3. Continue secondary prevention measures 4. Unclear BP regimen but will start on BB. Continue ASA and statin 5. Fluid off loading per HD DAVID PATEL MD 06/04/21 1444: CARDIAC CONSULT ASSESSMENT/PLAN ASSESSMENT/PLAN Patient seen and examined I agree with our nurse practitioners assessment and plan. Chest pain. Atypical. Improved today. Reportedly normal stress test over a year ago. No acute EKG changes. Trending troponin. Echo pending. Hypertensive urgency. Significant elevation on admission. Starting on a beta- edson with close monitoring. End-stage renal disease. Hemodialysis as above. Renal evaluation pending. Hyperlipidemia. Check lab. Continue statin. Obstructive sleep apnea. On CPAP. AGNELICA GREEN APRN Jun 04, 2021 08:56 DAVID PATEL MD Jun 04, 2021 14:44
[2021-06-04] MEDS ORDERED: FLU VACC QUAD 21-22 (6MOS+) PF 0.5 ML SYRINGE. VAX IM ONE (09:00)
[2021-06-04] MEDS ORDERED: VITAMIN B12,B9,B6 COMPLEX 1 TABLET. PO SCH (09:00)
[2021-06-04] MEDS ORDERED: FUROSEMIDE 80 MG TABLET. PO SCH (09:00)
[2021-06-04] MEDS ORDERED: ASPIRIN CHEWABLE 81 MG TABLET. PO SCH (09:00)
[2021-06-04] MEDS ORDERED: FOLIC/VIT B COMP W-C (RENAL) TABLET. PO SCH (09:00)
[2021-06-04] MEDS ORDERED: CINACALCET HCL 30 MG TABLET PO SCH (09:00)
[2021-06-04] MEDS: CALCIUM ACETATE 667 MG CAPSULE PO SCH ×3 (09:42→16:20)
[2021-06-04] MEDS: SEVELAMER CARBONATE 800 MG TABLET. PO SCH ×3 (09:42→16:21)
[2021-06-04] MEDS: HEPARIN for SUB-Q USE 5,000 UNIT/ML VIAL. SQ SCH (09:46)
--- NOTE | 2021-06-04 10:07 | PDOC ---
[employer] PROGRESS NOTE Date of Service DOS: DATE: 06/04/21 TIME: 10:07 Chief Complaint Chief Complaint A/P: Chest pain, shortness of breath - improved with ASA. Echo per cardiology HTN -continue daily furosemide ESRD - normally dialyzes TuThSa FEN - renal PPX - heparin FULL CODE Dispo - inpatient History of Present Illness History of Present Illness Ms. Argueta, is a 65-year-old female w/ PMHx HTN, ESRD on HD admit for a return of chest pain from last week, she has chest tightness as well as shortness of air and came from dialysis. She normally dialyzes Monday she did miss her dialysis session on 06/01/2021 but did have a complete session on 06/03/2021 and came to the ED after her dialysis session. She was at [facility] last week for chest pain, DC on . has been compliant with dialysis her father had CAD she reports having a prior stress test at [facility] on the [place] within the last year she was being evaluated for consideration for renal transplant and she was told at the time that it was a normal cardiac stress test and no interventions were performed. She denies any known sick contacts. She is s/p vaccinated against COVID 19. Admitted for further care She is awake, alert and uncomfortable appearing. Vitals/I&O Vitals/I&O: Vital Signs Date Time Temp Pulse Resp B/P (MAP) Pulse Ox O2 Delivery O2 Flow Rate FiO2 06/04/21 07:00 97.9 105 18 116/73 (87) 95 Room Air 97.9 I & O 06/03/21 06/03/21 06/04/21 15:00 23:00 07:00 Intake Total 200 ml 0 ml Balance 200 ml 0 ml Physical Exam General: Alert, Cooperative, No acute distress Lungs: Clear Abdomen: Normal bowel sounds, Soft Extremities: No clubbing, No edema Skin: No breakdown, No significant lesion Labs Labs: Laboratory Tests Test 06/03/21 15:20 06/03/21 15:55 SARS-CoV-2 Antigen (Rapid) Negative (NEGATIVE) White Blood Count 10.6 x10^3/uL (4.0-11.0) Red Blood Count 3.21 x10^6/uL (3.50-5.40) Hemoglobin 11.0 g/dL (12.0-15.5) Hematocrit 33.0 % (36.0-47.0) Mean Corpuscular Volume 103 fL (79-100) Mean Corpuscular Hemoglobin 34 pg (25-35) Mean Corpuscular Hemoglobin Concent 33 g/dL (31-37) Red Cell Distribution Width 13.6 % (11.5-14.5) Platelet Count 378 x10^3/uL (140-400) Neutrophils (%) (Auto) 73 % (31-73) Lymphocytes (%) (Auto) 12 % (24-48) Monocytes (%) (Auto) 13 % (0-9) Eosinophils (%) (Auto) 1 % (0-3) Basophils (%) (Auto) 0 % (0-3) Neutrophils # (Auto) 7.8 x10^3/uL (1.8-7.7) Lymphocytes # (Auto) 1.3 x10^3/uL (1.0-4.8) Monocytes # (Auto) 1.4 x10^3/uL (0.0-1.1) Eosinophils # (Auto) 0.1 x10^3/uL (0.0-0.7) Basophils # (Auto) 0.0 x10^3/uL (0.0-0.2) Sodium Level 134 mmol/L (136-145) Potassium Level 4.3 mmol/L (3.5-5.1) Chloride Level 96 mmol/L (98-107) Carbon Dioxide Level 32 mmol/L (21-32) Anion Gap 6 (6-14) Blood Urea Nitrogen 41 mg/dL (7-20) Creatinine 5.8 mg/dL (0.6-1.0) Estimated GFR (Cockcroft-Gault) 7.4 BUN/Creatinine Ratio 7 (6-20) Glucose Level 90 mg/dL (70-99) Calcium Level 9.0 mg/dL (8.5-10.1) Total Bilirubin 0.5 mg/dL (0.2-1.0) Aspartate Amino Transf (AST/SGOT) 19 U/L (15-37) Alanine Aminotransferase (ALT/SGPT) 46 U/L (14-59) Alkaline Phosphatase 129 U/L (46-116) Creatine Kinase 18 U/L (26-192) Creatine Kinase MB (Mass) < 0.5 ng/mL (0.0-3.6) Creatine Kinase MB Relative Index % (0-4) Troponin I Quantitative < 0.017 ng/mL (0.000-0.055) CL-Zas-Q-Type Natriuretic Peptide 5650 pg/mL (0-124) Total Protein 7.6 g/dL (6.4-8.2) Albumin 2.8 g/dL (3.4-5.0) Albumin/Globulin Ratio 0.6 (1.0-1.7) Assessment and Plan Assessmemt and Plan Problems Medical Problems: (1) Chest pain Status: Acute (2) Dyspnea Status: Acute (3) End stage renal disease Status: Acute (4) Person under investigation for COVID-19 Status: Acute Comment Review of Relevant I have reviewed the following items luda (where applicable) has been applied. Medications: Current Medications Medications (Trade) Dose Ordered Sig/Indy Route PRN Reason Start Time Stop Time Status Last Admin Dose Admin Aspirin (Aspirin Chewable) 81 mg DAILY PO 06/04/21 09:00 06/04/21 09:42 Cinacalcet (Sensipar) 30 mg DAILY PO 06/04/21 09:00 06/04/21 09:41 Vitamin B Complex/ Vitamin C (Lynsey-Sai) 1 tab DAILY PO 06/04/21 09:00 06/04/21 09:41 Furosemide (Lasix) 80 mg DAILY PO 06/04/21 09:00 06/04/21 09:42 Sevelamer Carbonate (Renvela) 2,400 mg TIDWMEALS PO 06/03/21 20:00 06/04/21 09:42 Calcium Acetate (Phoslo) 1,334 mg TIDWMEALS PO 06/03/21 20:00 06/04/21 09:42 Heparin Sodium (Porcine) (Heparin Sodium) 5,000 unit Q12HR SQ 06/03/21 21:00 06/04/21 09:46 Vitamin B Complex (Folbic Tablet) 1 tab DAILY PO 06/04/21 09:00 06/04/21 09:41 Influenza Virus Vaccine Quadrival (Flulaval Quad [id number] Syringe) 0.5 ml ONCE ONCE VAX IM 06/04/21 09:00 06/04/21 09:01 DC 06/04/21 09:43 Justifications for Admission Other Justification OSWALDO HOPKINS MD Jun 04, 2021 10:07
--- NOTE | 2021-06-04 10:51 | PDOC2 ---
CONSULT Date of Consult Date of Consult DATE: 06/04/21 TIME: 10:48 Reason for Consult Reason for Consult: ESRD Referring Physician Referring Physician: INOCENCIO Identification/Chief Complaint Chief Complaint CHEST PAIN Source Source: Chart review, Patient History of Present Illness Reason for Visit: THIS IS A 65 YR OLD WITH ESRD. ON OP HD ON TTS. HAS HD YESTERDAY. HAS A LEFT FA RC AVF AN ACCESS. ADMITETD WITH CHEST PAIN AND SOB. CURRENTLY NO SOB. IMAGING NEG FOR PULM VASCULAR CONGESTION. CARDIOLOGY EVAL ONGOING. ESRD DUE TO DM II AND HTN. LABS ARE C/W HER ESRD STATUS Past Medical History Cardiovascular: HTN, Hyperlipidemia Pulmonary: No pertinent hx, Other Endocrine: Diabetes, Hyperparathyroidism Past Surgical History Past Surgical History LEFT FA RC AVF Family History Family History: Diabetes, Heart Disease, High Cholestrol, Kidney Disease, Stroke Social History Social History: Other (father of sepsis) No ALCOHOL: none Drugs: None Lives: with Family Current Problem List Problem List Problems Medical Problems: (1) Chest pain Status: Acute (2) Dyspnea Status: Acute (3) End stage renal disease Status: Acute (4) Person under investigation for COVID-19 Status: Acute Current Medications Current Medications Current Medications Ondansetron HCl (Zofran) 4 mg PRN Q8HRS PRN IVP NAUSEA/VOMITING; Start 06/03/21 at 17:00; Stop 06/04/21 at 16:59 Acetaminophen (Tylenol) 650 mg PRN Q4HRS PRN PO FEVER > 100.3'F; Start 06/03/21 at 17:00; Stop 06/04/21 at 16:59 Aspirin (Aspirin Chewable) 81 mg DAILY PO Last administered on 06/04/21at 09:42; Start 06/04/21 at 09:00 Atorvastatin Calcium (Lipitor) 10 mg HS PO ; Start 06/03/21 at 21:00 Cinacalcet (Sensipar) 30 mg DAILY PO Last administered on 06/04/21at 09:41; Start 06/04/21 at 09:00 Vitamin B Complex/ Vitamin C (Lynsey-Sai) 1 tab DAILY PO Last administered on 06/04/21at 09:41; Start 06/04/21 at 09:00 Furosemide (Lasix) 80 mg DAILY PO Last administered on 06/04/21at 09:42; Start 06/04/21 at 09:00 Oxycodone HCl (Roxicodone) 5 mg PRN Q3HRS PRN PO PAIN; Start 06/03/21 at 19:45 Sevelamer Carbonate (Renvela) 2,400 mg TIDWMEALS PO Last administered on 06/04/21at 09:42; Start 06/03/21 at 20:00 Calcium Acetate (Phoslo) 1,334 mg TIDWMEALS PO Last administered on 06/04/21at 09:42; Start 06/03/21 at 20:00 Heparin Sodium (Porcine) (Heparin Sodium) 5,000 unit Q12HR SQ Last administered on 06/04/21at 09:46; Start 06/03/21 at 21:00 Vitamin B Complex (Folbic Tablet) 1 tab DAILY PO Last administered on 06/04/21at 09:41; Start 06/04/21 at 09:00 Influenza Virus Vaccine Quadrival (Flulaval Quad [id number] Syringe) 0.5 ml ONCE ONCE VAX IM Last administered on 06/04/21at 09:43; Start 06/04/21 at 09:00; Stop 06/04/21 at 09:01; Status DC Active Scripts Active Oxycodone Hcl Immed.release (Oxycodone Hcl) 5 Mg Tablet 5 Mg PO PRN Q3HRS PRN Reported Acetaminophen 500 Mg Tablet 2 Tab PO PRN Q6HRS PRN 15 Days Furosemide 80 Mg Tablet 1 Tab PO DAILY Calcium Acetate 667 Mg Tablet 2 Tab PO TID 30 Days Renvela (Sevelamer Carbonate) 800 Mg Tablet 3 Tab PO TID 30 Days Lynsey-Sai Tablet (Folic Acid/Vitamin B Comp W-C) 0.8 Mg Tablet 1 Tab PO DAILY 30 Days Children's Aspirin (Aspirin) 81 Mg Tab.chew 81 Mg PO DAILY Sensipar (Cinacalcet Hcl) 30 Mg Tablet 30 Mg PO DAILY Atorvastatin Calcium 10 Mg Tablet 10 Mg PO HS On Mondays and Fridays Vitamin D (Cholecalciferol (Vitamin D3)) 2,000 Unit Capsule 1,000 Unit PO DAILY 1000 units daily Allergies Allergies: Coded Allergies: Penicillins (Verified Allergy, Intermediate, Rash, 06/03/21) ROS General: YES: Fatigue, Malaise PSYCHOLOGICAL ROS: YES: Anxiety Eyes: Yes Decreased vision HEENT: YES: Heacaches ALLERGY AND IMMUNOLOGY: YES: Seasonal Allergies Respiratory: YES: Cough, Shortness of breath Cardiovascular: yes Chest Pain Gastrointestinal: Yes Constipation Genitourinary: YES Other (ANURIA) Musculoskeletal: Yes Muscular Weakness Neurological: Yes Weakness Skin: Yes Dry Skin Physical Exam General: Alert, Oriented X3, Cooperative, No acute distress HEENT: Atraumatic Lungs: Clear to auscultation Heart: Regular rate Abdomen: Normal bowel sounds, Soft, No tenderness Skin: No rashes, No breakdown Neuro: Normal speech Psych/Mental Status: Mental status NL MUSCULOSKELETAL: No joint tenderness, No deformity, No swelling, Other (LEFT FA AVF WITH GOOD THRILL AND BRUIT) Vitals VITALS Vital Signs Date Time Temp Pulse Resp B/P (MAP) Pulse Ox O2 Delivery O2 Flow Rate FiO2 06/04/21 07:00 97.9 105 18 116/73 (87) 95 Room Air 97.9 Labs Labs Laboratory Tests Test 06/03/21 15:20 06/03/21 15:55 SARS-CoV-2 RNA (DARLYN) Negative (Negative) SARS-CoV-2 Antigen (Rapid) Negative (NEGATIVE) White Blood Count 10.6 x10^3/uL (4.0-11.0) Red Blood Count 3.21 x10^6/uL (3.50-5.40) Hemoglobin 11.0 g/dL (12.0-15.5) Hematocrit 33.0 % (36.0-47.0) Mean Corpuscular Volume 103 fL (79-100) Mean Corpuscular Hemoglobin 34 pg (25-35) Mean Corpuscular Hemoglobin Concent 33 g/dL (31-37) Red Cell Distribution Width 13.6 % (11.5-14.5) Platelet Count 378 x10^3/uL (140-400) Neutrophils (%) (Auto) 73 % (31-73) Lymphocytes (%) (Auto) 12 % (24-48) Monocytes (%) (Auto) 13 % (0-9) Eosinophils (%) (Auto) 1 % (0-3) Basophils (%) (Auto) 0 % (0-3) Neutrophils # (Auto) 7.8 x10^3/uL (1.8-7.7) Lymphocytes # (Auto) 1.3 x10^3/uL (1.0-4.8) Monocytes # (Auto) 1.4 x10^3/uL (0.0-1.1) Eosinophils # (Auto) 0.1 x10^3/uL (0.0-0.7) Basophils # (Auto) 0.0 x10^3/uL (0.0-0.2) Sodium Level 134 mmol/L (136-145) Potassium Level 4.3 mmol/L (3.5-5.1) Chloride Level 96 mmol/L (98-107) Carbon Dioxide Level 32 mmol/L (21-32) Anion Gap 6 (6-14) Blood Urea Nitrogen 41 mg/dL (7-20) Creatinine 5.8 mg/dL (0.6-1.0) Estimated GFR (Cockcroft-Gault) 7.4 BUN/Creatinine Ratio 7 (6-20) Glucose Level 90 mg/dL (70-99) Calcium Level 9.0 mg/dL (8.5-10.1) Total Bilirubin 0.5 mg/dL (0.2-1.0) Aspartate Amino Transf (AST/SGOT) 19 U/L (15-37) Alanine Aminotransferase (ALT/SGPT) 46 U/L (14-59) Alkaline Phosphatase 129 U/L (46-116) Creatine Kinase 18 U/L (26-192) Creatine Kinase MB (Mass) < 0.5 ng/mL (0.0-3.6) Creatine Kinase MB Relative Index % (0-4) Troponin I Quantitative < 0.017 ng/mL (0.000-0.055) UM-Izc-S-Type Natriuretic Peptide 5650 pg/mL (0-124) Total Protein 7.6 g/dL (6.4-8.2) Albumin 2.8 g/dL (3.4-5.0) Albumin/Globulin Ratio 0.6 (1.0-1.7) Laboratory Tests Test 06/03/21 15:20 06/03/21 15:55 SARS-CoV-2 RNA (DARLYN) Negative (Negative) SARS-CoV-2 Antigen (Rapid) Negative (NEGATIVE) White Blood Count 10.6 x10^3/uL (4.0-11.0) Red Blood Count 3.21 x10^6/uL (3.50-5.40) Hemoglobin 11.0 g/dL (12.0-15.5) Hematocrit 33.0 % (36.0-47.0) Mean Corpuscular Volume 103 fL (79-100) Mean Corpuscular Hemoglobin 34 pg (25-35) Mean Corpuscular Hemoglobin Concent 33 g/dL (31-37) Red Cell Distribution Width 13.6 % (11.5-14.5) Platelet Count 378 x10^3/uL (140-400) Neutrophils (%) (Auto) 73 % (31-73) Lymphocytes (%) (Auto) 12 % (24-48) Monocytes (%) (Auto) 13 % (0-9) Eosinophils (%) (Auto) 1 % (0-3) Basophils (%) (Auto) 0 % (0-3) Neutrophils # (Auto) 7.8 x10^3/uL (1.8-7.7) Lymphocytes # (Auto) 1.3 x10^3/uL (1.0-4.8) Monocytes # (Auto) 1.4 x10^3/uL (0.0-1.1) Eosinophils # (Auto) 0.1 x10^3/uL (0.0-0.7) Basophils # (Auto) 0.0 x10^3/uL (0.0-0.2) Sodium Level 134 mmol/L (136-145) Potassium Level 4.3 mmol/L (3.5-5.1) Chloride Level 96 mmol/L (98-107) Carbon Dioxide Level 32 mmol/L (21-32) Anion Gap 6 (6-14) Blood Urea Nitrogen 41 mg/dL (7-20) Creatinine 5.8 mg/dL (0.6-1.0) Estimated GFR (Cockcroft-Gault) 7.4 BUN/Creatinine Ratio 7 (6-20) Glucose Level 90 mg/dL (70-99) Calcium Level 9.0 mg/dL (8.5-10.1) Total Bilirubin 0.5 mg/dL (0.2-1.0) Aspartate Amino Transf (AST/SGOT) 19 U/L (15-37) Alanine Aminotransferase (ALT/SGPT) 46 U/L (14-59) Alkaline Phosphatase 129 U/L (46-116) Creatine Kinase 18 U/L (26-192) Creatine Kinase MB (Mass) < 0.5 ng/mL (0.0-3.6) Creatine Kinase MB Relative Index % (0-4) Troponin I Quantitative < 0.017 ng/mL (0.000-0.055) ZO-Ggh-D-Type Natriuretic Peptide 5650 pg/mL (0-124) Total Protein 7.6 g/dL (6.4-8.2) Albumin 2.8 g/dL (3.4-5.0) Albumin/Globulin Ratio 0.6 (1.0-1.7) Assessment/Plan Assessment/Plan IMP ESRD-TTS ANEMIA DM II HTN CHEST PAIN PLAN HD TTS SHI WHEN NEEDED CARDIOLOGY EVAL WILL FOLLOW GALDINO URBANO MD Jun 04, 2021 10:51
[2021-06-04 10:58] LABS: CHOLESTEROL/HDL RATIO 3.1
[2021-06-04 11:00] VITALS: BP 139/73
--- NOTE | 2021-06-04 11:23 | NUR ---
SW following. Discussed with RN, pt from home with spouse, room air, renal diet, rapid COVID-19 negative. Pt does dialysis T, , . Echo ordered fort today. Cardiology and Nephrology following. RN advised no SW needs at this time, anticipates possible discharge today. SW will continue to follow.
[2021-06-04] MEDS ORDERED: METOPROLOL SUCC 24HR ER 25 MG TAB.ER.24H. PO SCH (13:00)
[2021-06-04 15:00] VITALS: BP 146/74
--- NOTE | 2021-06-04 16:16 | CARD ---
MR#: [id number] Date of Study: 06/04/2021 Ordering Physician: ANGELICA GREEN, Referring Physician: ANGELICA GREEN Tech: Inna Cardoza [facility] APPROVED REPORT EXAM: Two-dimensional and M-mode echocardiogram with Doppler and color Doppler. Other Information Quality : FairHR: 94bpm Rhythm : NSR INDICATION Chest Pain RISK FACTORS Hypertension Obesity 2D DIMENSIONS Left Atrium(2D)4.0 (1.6-4.0cm)IVSd1.0 (0.7-1.1cm) Aortic Root(2D)3.1 (2.0-3.7cm)LVDd4.8 (3.9-5.9cm) LVOT Diameter2.3 (1.8-2.4cm)PWd1.0 (0.7-1.1cm) LVDs3.4 (2.5-4.0cm)FS (%) 29.3 % SV61.2 mlLVEF(%)56.0 (>50%) Aortic Valve AoV Peak Chris.205.0cm/Pete Peak GR.16.8mmHg Tricuspid Valve TR P. [id number] Peak Gr.20mmHg LEFT VENTRICLE The left ventricle is normal size. There is normal left ventricular wall thickness. The left ventricu lar systolic function is normal. Estimated ejection fraction 60%. There is normal LV segmental wall motion. RIGHT VENTRICLE The right ventricle is normal size. The right ventricle is mildly hypertrophied. The right ventricula r systolic function is normal. ATRIA The left atrium size is normal. The right atrium size is normal. The interatrial septum is intact wit h no evidence for an atrial septal defect or patent foramen ovale as noted on 2-D or Doppler imaging. AORTIC VALVE The aortic valve is normal in structure and function. Doppler and Color Flow revealed no significant aortic regurgitation. There is no significant aortic valvular stenosis. MITRAL VALVE The mitral valve is normal in structure and function. There is no evidence of mitral valve prolapse. There is no mitral valve stenosis. Doppler and Color-flow revealed mild mitral regurgitation. TRICUSPID VALVE The tricuspid valve is normal in structure and function. Doppler and Color Flow revealed mild tricusp id regurgitation. Estimated PAP 25 mmHg. There is no tricuspid valve stenosis. PULMONIC VALVE The pulmonary valve is normal in structure and function. Doppler and Color Flow revealed no pulmonic valvular regurgitation. GREAT VESSELS The aortic root is normal in size. The ascending aorta is normal in size. The IVC is normal in size a nd collapses >50% with inspiration. PERICARDIAL EFFUSION There is no evidence of significant pericardial effusion. Critical Notification Critical Value: No <Conclusion> The left ventricular systolic function is normal. Estimated ejection fraction 60%. There is normal LV segmental wall motion. Mild mitral regurgitation. Mild tricuspid regurgitation. Estimated PAP 25 mmHg. There is no evidence of significant pericardial effusion. Signed by : Curtis Hammond, Electronically Approved : 06/04/2021 16:16:18
[2021-06-04] MEDS ORDERED: METO-239 PO (17:09)
--- NOTE | 2021-06-04 17:11 | PDOC3 ---
Discharge Summary Visit Information Date of Admission: Jun 03, 2021 Date of Discharge: Jun 04, 2021 Admitting Diagnosis: Chest pain Final Diagnosis Problems Medical Problems: (1) Chest pain Status: Acute (2) Dyspnea Status: Acute (3) End stage renal disease Status: Acute (4) Person under investigation for COVID-19 Status: Acute Brief Hospital Course Allergies Allergies Coded Allergies Type Severity Reaction Last Updated Verified Penicillins Allergy Intermediate Rash 06/03/21 Yes Vital Signs Vital Signs Date Time Temp Pulse Resp B/P (MAP) Pulse Ox O2 Delivery O2 Flow Rate FiO2 06/04/21 15:00 97.8 92 18 146/74 (98) 96 Room Air 97.8 Lab Results Laboratory Tests Test 06/03/21 15:20 06/03/21 15:55 06/04/21 09:30 SARS-CoV-2 RNA (DARLYN) Negative (Negative) SARS-CoV-2 Antigen (Rapid) Negative (NEGATIVE) White Blood Count 10.6 x10^3/uL (4.0-11.0) Red Blood Count 3.21 x10^6/uL (3.50-5.40) Hemoglobin 11.0 g/dL (12.0-15.5) Hematocrit 33.0 % (36.0-47.0) Mean Corpuscular Volume 103 fL (79-100) Mean Corpuscular Hemoglobin 34 pg (25-35) Mean Corpuscular Hemoglobin Concent 33 g/dL (31-37) Red Cell Distribution Width 13.6 % (11.5-14.5) Platelet Count 378 x10^3/uL (140-400) Neutrophils (%) (Auto) 73 % (31-73) Lymphocytes (%) (Auto) 12 % (24-48) Monocytes (%) (Auto) 13 % (0-9) Eosinophils (%) (Auto) 1 % (0-3) Basophils (%) (Auto) 0 % (0-3) Neutrophils # (Auto) 7.8 x10^3/uL (1.8-7.7) Lymphocytes # (Auto) 1.3 x10^3/uL (1.0-4.8) Monocytes # (Auto) 1.4 x10^3/uL (0.0-1.1) Eosinophils # (Auto) 0.1 x10^3/uL (0.0-0.7) Basophils # (Auto) 0.0 x10^3/uL (0.0-0.2) Sodium Level 134 mmol/L (136-145) Potassium Level 4.3 mmol/L (3.5-5.1) Chloride Level 96 mmol/L (98-107) Carbon Dioxide Level 32 mmol/L (21-32) Anion Gap 6 (6-14) Blood Urea Nitrogen 41 mg/dL (7-20) Creatinine 5.8 mg/dL (0.6-1.0) Estimated GFR (Cockcroft-Gault) 7.4 BUN/Creatinine Ratio 7 (6-20) Glucose Level 90 mg/dL (70-99) Calcium Level 9.0 mg/dL (8.5-10.1) Total Bilirubin 0.5 mg/dL (0.2-1.0) Aspartate Amino Transf (AST/SGOT) 19 U/L (15-37) Alanine Aminotransferase (ALT/SGPT) 46 U/L (14-59) Alkaline Phosphatase 129 U/L (46-116) Creatine Kinase 18 U/L (26-192) Creatine Kinase MB (Mass) < 0.5 ng/mL (0.0-3.6) Creatine Kinase MB Relative Index % (0-4) Troponin I Quantitative < 0.017 ng/mL (0.000-0.055) < 0.017 ng/mL (0.000-0.055) LD-Kvb-M-Type Natriuretic Peptide 5650 pg/mL (0-124) Total Protein 7.6 g/dL (6.4-8.2) Albumin 2.8 g/dL (3.4-5.0) Albumin/Globulin Ratio 0.6 (1.0-1.7) Triglycerides Level 68 mg/dL (0-150) Cholesterol Level 163 mg/dL (0-200) LDL Cholesterol, Calculated 97 mg/dL (0-100) VLDL Cholesterol, Calculated 14 mg/dL (0-40) Non-HDL Cholesterol Calculated 111 mg/dL (0-129) HDL Cholesterol 52 mg/dL (40-60) Cholesterol/HDL Ratio 3.1 Thyroid Stimulating Hormone (TSH) 1.647 uIU/mL (0.358-3.74) Laboratory Tests Test 06/04/21 09:30 Troponin I Quantitative < 0.017 ng/mL (0.000-0.055) Triglycerides Level 68 mg/dL (0-150) Cholesterol Level 163 mg/dL (0-200) LDL Cholesterol, Calculated 97 mg/dL (0-100) VLDL Cholesterol, Calculated 14 mg/dL (0-40) Non-HDL Cholesterol Calculated 111 mg/dL (0-129) HDL Cholesterol 52 mg/dL (40-60) Cholesterol/HDL Ratio 3.1 Thyroid Stimulating Hormone (TSH) 1.647 uIU/mL (0.358-3.74) Brief Hospital Course Ms. Argueta, is a 65-year-old female w/ PMHx HTN, ESRD on HD admit for a return of chest pain from last week, she has chest tightness as well as shortness of air and came from dialysis. She normally dialyzes Monday she did miss her dialysis session on 06/01/2021 but did have a complete session on 06/03/2021 and came to the ED after her dialysis session. She was at [facility] last week for chest pain, DC on . has been compliant with dialysis her father had CAD she reports having a prior stress test at [facility] on the [place] within the last year she was being evaluated for consideration for renal transplant and she was told at the time that it was a normal cardiac stress test and no interventions were performed. She denies any known sick contacts. She is s/p vaccinated against COVID 19. Admitted for further care She is awake, alert and pain improved with PPI. Seen by nephrology and cardiology in consultation. Underwent echocardiogram: The left ventricular systolic function is normal. Estimated ejection fraction 60%. There is normal LV segmental wall motion. Mild mitral regurgitation. Mild tricuspid regurgitation. Estimated PAP 25 mmHg. There is no evidence of significant pericardial effusion. Problem list: Chest pain, shortness of breath - improved with ASA and PPI. Echo per cardiology HTN -continue daily furosemide ESRD - normally dialyzes TuThSa Given her quick improvement and normal cardiac stress test at [facility] and normal troponins and EKG and echocardiogram likely this was esophageal spasm or symptomatic reflux and will follow up and have GI referral outpatient Greater than 35 minutes spent on same day admission and discharge Discharge Information Condition at Discharge: Improved Follow Up: Weeks (1) Disposition/Orders: D/C to Home Scheduled Aspirin (Children's Aspirin) 81 Mg Tab.chew, 81 MG PO DAILY for heart, (Reported) Entered as Reported by: LEANA CASTILLO on 02/27/201054 Last Action: Reviewed on 06/04/21238 by DALLIN AGUILAR Atorvastatin Calcium (Atorvastatin Calcium) 10 Mg Tablet, 10 MG PO HS for FOR CHOLESTEROL, #30 Ref 0 (Reported) On Mondays and Fridays Entered as Reported by: LEANA CASTILLO on 02/27/201054 Last Action: Reviewed on 06/04/21238 by DALLIN AGUILAR Calcium Acetate (Calcium Acetate) 667 Mg Tablet, 2 TAB PO TID for REPLACE CALIUM for 30 Days, #180 Ref 0 (Reported) Entered as Reported by: LUIS ARMANDO WALLACE on 12/12/202229 Last Action: Reviewed on 06/04/21238 by DALLIN AGUILAR Cholecalciferol (Vitamin D3) (Vitamin D) 2,000 Unit Capsule, 1,000 UNIT PO DAILY for nutritional supplement, (Reported) 1000 units daily Entered as Reported by: MAXIMILIANO CHAWLA on 07/07/16 1544 Last Action: Reviewed on 06/04/21238 by DALLIN AGUILAR Cinacalcet Hcl (Sensipar) 30 Mg Tablet, 30 MG PO DAILY for kidneys, (Reported) Entered as Reported by: LEANA CASTILLO on 02/27/201054 Last Action: Reviewed on 06/04/21238 by DALLIN AGUILAR Folic Acid/Vitamin B Comp W-C (Lynsey-Sai Tablet) 0.8 Mg Tablet, 1 TAB PO DAILY for VIT REPLACEMENT for 30 Days, #30 Ref 0 (Reported) Entered as Reported by: LUIS ARMANDO WALLACE on 12/12/202229 Last Action: Reviewed on 06/04/21238 by DALLIN AGUILAR Furosemide (Furosemide) 80 Mg Tablet, 1 TAB PO DAILY for take daily on non- dialysis day, #30 Ref 5 (Reported) Entered as Reported by: KHALIDA JENKINS on 12/13/201714 Last Action: Reviewed on 06/04/21238 by DALLIN AGUILAR Metoprolol Succinate (Metoprolol Succinate ( Xl )) 25 Mg Tab.er.24h, 12.5 MG PO DAILY for Chest pain for 30 Days, #15 Ref 2 Prescribed by: OSWALDO HOPKINS MD on 06/04/211708 Pantoprazole Sodium (Protonix ) 40 Mg Tablet.dr, 40 MG PO DAILYAC for GERD for 30 Days, #30 Prescribed by: OSWALDO HOPKINS MD on 06/04/21 1718 Sevelamer Carbonate (Renvela) 800 Mg Tablet, 3 TAB PO TID for PHOSPHATE BINDER for 30 Days, #270 Ref 0 (Reported) Entered as Reported by: LUIS ARMANDO WALLACE on 12/12/202229 Last Action: Reviewed on 06/04/21238 by DALLIN AGUILAR Scheduled PRN Acetaminophen (Acetaminophen) 500 Mg Tablet, 2 TAB PO PRN Q6HRS PRN for pain or fever for 15 Days, #60 Ref 0 (Reported) Entered as Reported by: KHALIDA JENKINS on 12/13/201714 Last Action: Reviewed on 06/04/21238 by DALLIN AGUILAR Oxycodone Hcl (Oxycodone Hcl Immed.release ) 5 Mg Tablet, 5 MG PO PRN Q3HRS PRN for PAIN, #30 Prescribed by: TIFFANY PAINTER on 12/18/20 112 Last Action: Reviewed on 06/04/21238 by DALLIN AGUILAR Justicifation of Admission Dx: Justifications for Admission: Justification of Admission Dx: Yes OSWALDO HOPKINS MD Jun 04, 2021 17:11
[2021-06-04] MEDS ORDERED: PANT40TA77 PO (17:18)
[2021-06-04] MEDS ORDERED: PANTOPRAZOLE 40 MG TABLET.DR. PO ONE (17:30)
--- NOTE | 2021-06-04 18:16 | NUR ---
Discharge Note: PT DISCHARGED HOME WITH SELF CARE. PT LEFT FACILITY VIA PRIVATE VEHICLE WITH SPOUSE AT 1800. PT STABLE AND ALERT UPON DISCHARGE. PT EDUCATED ABOUT DISCHARGE INSTRUCTIONS, DISCHARGE MEDICATIONS, AND FOLLOW-UP INSTRUCTIONS, NO CONCERNS VOICED AT THIS TIME. PT LEFT WITH ALL PERSONAL BELONGINGS. JUVE ALBARADO Discharge instructions and discharge home medications reviewed with Patient and a copy given. All questions have been answered and understanding verbalized. The following instructions and handouts were given:
== END 2021-06-04 18:19 | disposition home or self-care (01) ==
LOC: ER 14:17 → 5 SOUTH 16:40
PROVIDERS: ADMIT Internal Medicine; ATTEND Internal Medicine
DX: R07.89 Other chest pain (principal); Z20.822 Contact with and (suspected) exposure to COVID-19; R06.00 Dyspnea, unspecified; I16.0 Hypertensive urgency; I13.2 Hypertensive heart and chronic kidney disease with heart failure and with stage 5 chronic kidney disease, or end stage renal disease; I50.32 Chronic diastolic (congestive) heart failure; N18.6 End stage renal disease; E11.22 Type 2 diabetes mellitus with diabetic chronic kidney disease; D63.1 Anemia in chronic kidney disease; E66.9 Obesity, unspecified; E78.5 Hyperlipidemia, unspecified; G47.33 Obstructive sleep apnea (adult) (pediatric); I20.9 Angina pectoris, unspecified; I31.3 Pericardial effusion (noninflammatory); J98.11 Atelectasis; K21.9 Gastro-esophageal reflux disease without esophagitis; K22.4 Dyskinesia of esophagus; Z23 Encounter for immunization; Z68.39 Body mass index [BMI] 39.0-39.9, adult; Z90.710 Acquired absence of both cervix and uterus; Z96.653 Presence of artificial knee joint, bilateral; Z99.2 Dependence on renal dialysis; Z90.49 Acquired absence of other specified parts of digestive tract; Z79.899 Other long term (current) drug therapy; Z98.890 Other specified postprocedural states
CPT/HCPCS: 36415; 71045; 80053; 80061; 82553; 83880; 84443; 84484; 85025; 87426; 90471; 90686; 93005; 93306; 96372; 99285; G0378; J1644; U0003; U0005; G0379